=== PATIENT | female | born 1930 | race Caucasian/White ===

== ENCOUNTER 2017-04-22 09:55 | Observation (INO) | payer MEDICARE, OTHER ==
[2017-04-22 11:16] LABS: ALT (SGPT) 25 U/L (8-55); AST (SGOT) 31 U/L (5-34); Albumin 4.1 g/dL (3.4-4.8); Alkaline Phosphatase 76 U/L (40-150); Anion Gap 11 mmol/L (10-20); BUN (Urea Nitrogen) 18 mg/dL (9.8-20.1); Bilirubin, Total 0.6 mg/dL (0.2-1.2); Calc. Creatinine Clearance 0 mL/min (70-130); Calcium 9.6 mg/dL (7.8-10.44); Carbon Dioxide 30 mmol/L (23-31); Chloride 104 mmol/L (98-107); Estimated GFR-MDRD 85; Globulin 2.8 g/dL (2.4-3.5); Glucose 108 mg/dL (83-110); Potassium 3.9 mmol/L (3.5-5.1); Protein, Total 6.9 g/dL (6.0-8.3); Sodium 141 mmol/L (136-145)
[2017-04-22 11:20] LABS: CKMB 3.3 ng/mL (0-6.6); Troponin I 0.015 ng/mL (< 0.028)
--- NOTE | 2017-04-22 11:37 | RAD ---
PORTABLE AP CHEST: Date: 04/22/17 HISTORY: Chest pain and aching in left arm which started last night. High blood pressure. COMPARISON: 07/08/15. FINDINGS: Cardiac silhouette is enlarged. Pulmonary vasculature is within normal limits. Lungs are clear. There is increased density seen in the retrocardiac region lower mediastinum most likely related to a hiat al hernia as there is suggestion of air fluid level within this structure. This was not seen on the p rior exam. Remote right-sided rib fractures are identified. Vascular calcifications seen in the thoracic aorta. There is right convex rotoscoliosis of the thorac olumbar spine. Vascular calcifications are seen in the thoracic aorta. IMPRESSION: 1. Cardiomegaly. 2. Hiatal hernia. 3. Remote right-sided rib fractures. 4. Osteopenia. 5. Right convex scoliosis thoracolumbar spine with degenerative changes in the spine. 6. No acute cardiopulmonary process. POS: [facility]
[2017-04-22] MEDS ORDERED: Labetalol HCl 100 MG/20 ML VIAL ONE (11:47)
[2017-04-22] MEDS ORDERED: Sodium Chloride 0.65% Nasal 44 ML BOT EA NARE PRN (14:26)
[2017-04-22] MEDS ORDERED: Milk Of Magnesia 30 ML UDCUP PO PRN (14:26)
[2017-04-22] MEDS ORDERED: Mag-Al 1200 mg/1200 mg/30 ML UDCUP PO PRN (14:26)
[2017-04-22] MEDS ORDERED: Loperamide HCl 2 MG CAP PO PRN (14:26)
[2017-04-22] MEDS ORDERED: Nitroglycerin 0.4 MG TAB (25 Tab Bottle) SL PRN (14:26)
[2017-04-22] MEDS ORDERED: Zolpidem Tartrate 5 MG TAB PO PRN (14:26)
[2017-04-22] MEDS ORDERED: Loratadine 10 MG TAB PO PRN (14:26)
[2017-04-22] MEDS ORDERED: Ondansetron ODT 4 MG TAB PO PRN (14:26)
[2017-04-22] MEDS ORDERED: Ondansetron HCl/PF 4 MG/2 ML Vial IVP PRN (14:26)
[2017-04-22] MEDS ORDERED: Acetaminophen 325 MG TAB PO PRN (14:26)
[2017-04-22] MEDS ORDERED: Senokot 8.6 MG TAB PO PRN (14:26)
[2017-04-22] MEDS ORDERED: hydrALAZINE 20 MG/ML VIAL SLOW IVP PRN (14:26)
[2017-04-22] MEDS ORDERED: Diabetic Tussin 200 MG/10 ML UDCUP PO PRN (14:26)
[2017-04-22] MEDS ORDERED: Chloraseptic Spray 180 ml Bottle PO PRN (14:26)
[2017-04-22 14:31] VITALS: BMI 20.2
--- NOTE | 2017-04-22 14:49 | HP ---
PRIMARY CARE PHYSICIAN: Dr. Schulz. REASON FOR ADMISSION: Chest discomfort, hypertensive urgency. HISTORY OF PRESENT ILLNESS: An 87-year-old female with a history of hypertension and hypothyroidism who came to emergency room with complaint of left arm achy pain and heaviness. It started in the acevedo d and progressed towards left side of chest as well. This started last night when she went to bed, b ut when this morning she woke up, she was still feeling heaviness and she was having left-sided chest , dull achy pain and that is why she was concerned about and decided to come to the emergency room fo r evaluation. The patient is thinking that lately she was in lot of emotional stress. Her i s in skilled nursing and she was thinking about him and with emotions her blood pressure gets high. Whe n she arrived to emergency room, her blood pressure was 211/108. In the emergency room, patient was given medication and her blood pressure was improved. Still she was feeling exactly same symptoms wh en she presented to emergency room. When I saw this patient, at that time, she was complaining of le ft arm heaviness, but her discomfort in the chest was resolved. She denies any tingling, numbness in the left arm. She denies any lower extremity tingling, numbness or weakness. She denies any facial asymmetry. She denies any slurred speech. She denies any headache. She reports that a long time a go she was having high blood pressure. At that time, she was diagnosed with urinary tract infection. She had a treadmill stress test several years ago. She denies pain anywhere in her body. She sai es any fever, chills, cough, UTI symptoms. She denies any constipation, diarrhea, melena or hematoch ezia. Patient denies any flu-like symptoms. She denies any abdominal pain. She denies any constipation an d diarrhea. In the emergency room, this patient was given labetalol 5 mg and nitropatch. After that, her blood p ressure significantly improved. When I was taking history and physical, after that, patient's blood pressure is also slightly increased. ALLERGIES: CODEINE SULFATE, DEMEROL, and LATEX. CURRENT HOME MEDICATIONS: Losartan 100 mg p.o. daily and [place] Thyroid 60 mg p.o. daily. REVIEW OF SYSTEMS: The following complete review of systems was negative, unless otherwise mentioned in the HPI or below: Constitutional: Weight loss or gain, ability to conduct usual activities. Skin: Rash, itching. Eyes: Double vision, pain. ENT/Mouth: Nose bleeding, neck stiffness, pain, tenderness. Cardiovascular: Palpitations, dyspnea on exertion, orthopnea. Respiratory: Shortness of breath, wheezing, cough, hemoptysis, fever or night sweats. Gastrointestinal: Poor appetite, abdominal pain, heartburn, nausea, vomiting, constipation, or diarr hea. Genitourinary: Urgency, frequency, dysuria, nocturia. Musculoskeletal: Pain, swelling. Neurologic/Psychiatric: Anxiety, depression. Allergy/Immunologic: Skin rash, bleeding tendency. Please see my HPI for pertinent positive and negative. All other review of systems reviewed and nega tive except as mentioned in the HPI. PAST MEDICAL HISTORY: Prolapsed bladder, right bundle branch block pattern, TIA, hypertension, hypot hyroidism. PAST SURGICAL HISTORY: Bladder flap in her 20s, appendicectomy, hysterectomy, left hip surgery after fracture, thyroidectomy partial. PAST PSYCHIATRIC HISTORY: Reviewed and negative. SOCIAL HISTORY: Patient is . Her lives in skilled nursing. She drinks alcohol occasion ally twice a month. The patient denies any smoking. She denies any other illicit drug abuse. FAMILY HISTORY: No strong family history of premature coronary artery disease, stroke or cancer. EMERGENCY ROOM COURSE: Patient is given labetalol 5 mg and nitropatch. PHYSICAL EXAMINATION: VITAL SIGNS: Currently, blood pressure 211/108, pulse 90, respiratory rate 16, temperature 98.3, sat uration 98% on 2 liter oxygen, and weight 49.9 kilograms. GENERAL: The patient is currently alert, awake hypertensive, no obvious acute distress. HEAD: Normocephalic, atraumatic. EYES: Pupils round, reactive to light. Extraocular muscles intact. ENT: Oropharynx within normal limits. Moist mucous membranes, no oral lesion, no pharyngeal erythem a, no exudate. NECK: Supple, no JVD, no thyromegaly, no carotid bruit, no jugular venous distention. LUNGS: Clear to auscultation without any rhonchi or rales. CARDIAC: S1 and S2 regular. No murmur, no gallop, no rub. ABDOMEN: Soft, bowel sounds present, nontender, nondistended. No organomegaly, no mass, no suprapub ic tenderness. BACK: Examination unremarkable, no CVA tenderness. EXTREMITIES: Upper extremity passive movements of all joints are normal. Lower extremity, trace low er extremity edema noted. Good peripheral pulsation. No calf tenderness. SKIN: No skin rash. HEMATOLOGICAL SYSTEM: No lymphadenopathy. PSYCHIATRIC: Normal affect. NEUROLOGIC: Patient is currently alert and oriented x3. Cranial nerves II-XII intact. Motor 5/5 in all four limbs. The patient is subjectively feeling heaviness in left upper extremity. Her lower e xtremity within normal limits. No cerebellar sign. Reflexes bilaterally symmetrical. Plantar bilat eral flexor. SIGNIFICANT LABORATORY DATA AND IMAGING DATA: 1. EKG showing normal sinus rhythm, left axis deviation, nonspecific ST-T changes. 2. CBC is not done. 3. BMP: Sodium 141, potassium 3.9, chloride 104, carbon dioxide 30, anion gap 11, BUN 18, creatinin e 0.66, calcium 9.6. 4. LFT: AST 31, ALT 25, alkaline phosphatase 76, albumin 4.1, CK-MB 3.3, troponin I 0.015. 5. Chest x-ray based on my review, cardiomegaly, hiatal hernia, remote right-sided rib fracture, ost eopenia, right convex scoliosis of thoracolumbar spine with degenerative changes. ASSESSMENT AND PLAN/IMPRESSION: 1. Chest discomfort with left arm heaviness and achy feeling rule out cardiac etiology. At this poi nt, our differential diagnosis is acute coronary syndrome. Second differential diagnosis is transien t ischemic attack and third differential diagnosis is stress related. All problems contributed by un derlying hypertensive urgency that might have precipitated by stress and subsequent symptoms are rela mari with hypertensive urgency. At this point, despite control of blood pressure, she still has ongoi ng symptoms. We will keep in her observation status. We will do serial cardiac enzymes and rule out acute coronary syndrome. Meanwhile, we will continue with nitropatch q.8 hourly. We will use hydra lazine on p.r.n. basis for blood pressure control. Continue her losartan 100 mg p.o. daily. Check l ipid profile tomorrow morning for risk stratification. As a benefit of doubt, we will also perform C T brain to rule out any acute intracranial process. Our doubt for any kind of stroke is less likely, but cannot be entirely excluded. We will monitor on telemetry floor. 2. Hypertensive urgency with a history of hypertension. Continue losartan 100 mg p.o. daily, nitrop atch q.8 hourly and use hydralazine p.r.n. basis for blood pressure control. 3. Hypothyroidism. Continue [place] Thyroid 60 mg p.o. daily. 4. Mild protein calorie malnutrition. The patient will need nutritional supplement with Ensure. 5. Hiatal hernia. We will continue Pepcid 20 mg p.o. b.i.d. 6. Osteopenia. We will continue calcium with vitamin D 1 tablet p.o. daily. 7. Cardiomegaly, likely related with hypertension and we will check BNP level. 8. Deep venous thrombosis prophylaxis, sequential compression device boots. 9. Gastrointestinal prophylaxis, Pepcid 20 mg p.o. b.i.d. 10. Code status: The patient is FULL CODE. Patient does not have any surrogate decision maker. Disposition plan based on above-mentioned investigation results, likely within 24 hours.
[2017-04-22 15:02] LABS: Bilirubin Negative (Negative); Blood, Urine Negative (Negative); Clarity CLOUDY (Clear); Glucose, Urine (Dipstick) Negative (Negative); Leukocyte Moderate (Negative); Nitrite Positive (Negative); Protein, Urine (Dipstick) Negative (Neg-Trace); Urobilinogen 0.2 mg/dL (0.2-1.0)
[2017-04-22 15:07] LABS: Bacteria/HPF 4+ HPF (None Seen); Hyaline Casts/LPF 0-3 HYALINE CAST LPF (0-3 Hyaline); Pathc Cast-AUWi Flag 0.27 (0-2.49); RBC/HPF 0-3 HPF (0-3); Squamous Epithelial 0-3 HPF (0-3)
[2017-04-22 15:13] LABS: Troponin I 0.013 ng/mL (< 0.028)
--- NOTE | 2017-04-22 17:18 | CT ---
NONCONTRAST HEAD CT: Date: 04/22/17 HISTORY: Left upper extremity heaviness. Left upper extremity weakness. COMPARISON: None. TECHNIQUE: Noncontrast head CT is performed from skull base to skull vertex. FINDINGS: No parenchymal hemorrhage. No extra-axial hematoma. No midline shift. Basilar cisterns are patent. Ag e-appropriate atrophy. Chronic small vessel ischemic changes of the white matter noted. Cortical martinez -white matter differentiation is preserved. No evidence of hydrocephalus. Calvarium is intact. [place] te aeration of the sinuses and mastoid air cells. Calcified carotid atherosclerosis noted. IMPRESSION: 1. No acute intracranial process. 2. Age-appropriate atrophy. 3. Chronic small vessel ischemic changes of the white matter. POS: [facility]
[2017-04-22 17:32] LABS: Troponin I Less than 0.010 ng/mL (< 0.028)
[2017-04-22] MEDS: Nitroglycerin 2% Ointment 1 INCH/1 GM Packet TOP SCH (20:17)
[2017-04-22] MEDS: Famotidine 20 MG TAB PO SCH (20:32)
[2017-04-23] MEDS ORDERED: diphenhydrAMINE 50 MG/ML VIAL IVP SCH (00:15)
[2017-04-23] MEDS: Nitroglycerin 2% Ointment 1 INCH/1 GM Packet TOP SCH (00:34)
[2017-04-23] MEDS ORDERED: cefTRIAXone\\ROCEPHIN 1 GM, Syringe 0.4 ML in Sterile Water 9.6 ML SLOW IVP SCH (03:00)
[2017-04-23 05:27] LABS: Cardiac Risk 2.7 (Less than 4.5)
[2017-04-23] MEDS ORDERED: Losartan 25 MG TAB PO SCH (09:00)
[2017-04-23] MEDS ORDERED: Aspirin 325 MG TAB PO SCH (09:00)
[2017-04-23] MEDS ORDERED: Thyroid 60 MG TAB PO SCH (09:00)
[2017-04-23] MEDS: Famotidine 20 MG TAB PO SCH (10:49)
--- NOTE | 2017-04-23 11:29 | NM ---
CARDIAC SPECT: CLINICAL HISTORY: 87-year-old female with chest pain, hypertension, and TIA. TECHNIQUE: A myocardial perfusion scan was performed using the single isotope one day protocol with technetium-9 9m sestamibi. 9 mCi were injected intravenously for the rest exam followed by 33 mCi for the stress e xam. Pharmacologic stress with Adenosine was monitored and interpreted by Dr. Metz. FINDINGS: Homogeneous tracer distribution is seen in the myocardial segments on stress and rest images without fixed or reversible defects. GATED SPECT LVEF: 72%. WALL MOTION EXAM: Normal. IMPRESSION: Normal myocardial perfusion scan. POS: [facility]
--- NOTE | 2017-04-23 12:02 | DIS ---
DATE OF ADMISSION: 04/22/2017 DATE OF DISCHARGE: 04/23/2017 PRIMARY CARE PHYSICIAN: Dr. Hernandez. DISCHARGE DISPOSITION: Home. PRIMARY DISCHARGE DIAGNOSES: 1. Hypertensive urgency. 2. Chest pain, ruled out acute coronary syndrome. 3. Urinary tract infection. SECONDARY DISCHARGE DIAGNOSES: Hiatal hernia, mild protein calorie malnutrition, hypothyroidism, hyp ertension. PRIMARY PROCEDURE/OPERATION: None. RADIOLOGICAL INVESTIGATION: Chest x-ray normal. CT of the brain showed chronic ischemic white matte r changes, cerebral atrophy. Stress test negative. SIGNIFICANT LABORATORY: BMP normal. LFT normal. Cardiac enzymes negative. LDL 108. Urinalysis mota ggestive of UTI. Urine culture growing E. coli. DISCHARGE MEDICATIONS: Losartan 100 mg p.o. daily, [place] Thyroid 60 mg p.o. daily, Macrobid 100 mg p.o. b.i.d. for 7 days, clonidine 0.1 mg every 6 hourly p.r.n. for blood pressure more than 170. CONTRAINDICATIONS: None. CODE STATUS: FULL CODE. INPATIENT CONSULTANTS: None. ALLERGIES: LATEX, CODEINE, CIPROFLOXACIN, DEMEROL. DISCHARGE PLAN: Post hospital, patient will follow up with primary care physician. HOSPITAL COURSE: An 87-year-old female who was admitted by me yesterday. Please see my HPI for furt her details. This patient was having a lot of emotional stress. She was having hypertension while i n the emergency room, her blood pressure was 211/108. She was having vague chest discomfort and left upper extremity heaviness. We did CT brain and ruled out any cerebrovascular accident. This patien t was not having any urinary tract infection symptoms, but we checked urinalysis that was consistent with UTI and that is why we started on Cipro, but patient developed allergic reaction and that is why we changed medication to Rocephin. On discharge, we are prescribing Macrobid based on previous cult ure and sensitivity result. Patient is advised to follow up with primary care physician to modify an tibiotic therapy if needed. While in hospital, we did a stress test and the patient's stress test came back normal. While in [facility], her blood pressure remained stable and labile. We prescribed clonidine to use p.r.n. basis on ly. This patient might have underlying stress related blood pressure and that was contributing to he r symptoms. At this point, we have ruled out cardiac etiology. The patient was seen and examined at bedside today. All review of system reviewed with her and tyrell shen. PHYSICAL EXAMINATION: VITAL SIGNS: Currently, temperature 98.4, pulse 75, respiratory rate 16, saturation 95% on room air, blood pressure 154/67, weight 110 pounds. GENERAL: The patient is currently alert, awake, no acute distress. HEAD: Normocephalic, atraumatic. EYES: Pupils round, reactive to light. Extraocular muscle intact. ENT: Oropharynx within normal limits. Moist mucous membranes, no oral lesion, no pharyngeal erythem a, no exudate. NECK: Supple, no JVD, no thyromegaly, no carotid bruit. LUNGS: Clear to auscultation without any rhonchi or rales. CARDIAC: S1, S2 regular without any murmur. ABDOMEN: Soft and benign without any tenderness. EXTREMITIES: No edema. NEUROLOGIC: Nonfocal examination. Overall, patient is medically stable for discharge today.
--- NOTE | 2017-04-23 12:08 | PDOC.PN ---
- Subjective Encounter Start Date: 04/23/17 Encounter Start Time: 10:15 Patient seen and examined. No new complaints. No overnight events - Objective Resuscitation Status: Resuscitation Status FULL:Full Resuscitation MAR Reviewed: Yes Vital Signs & Weight: Vital Signs (12 hours) Temp Pulse Resp BP BP Pulse Ox 04/23/17 12:04 78 04/23/17 07:45 98.4 F 78 16 174/74 H 92 L 04/23/17 03:10 98.4 F 70 16 163/74 H 97 Weight Weight 110 lb 12.8 oz I&O: 04/22/17 04/23/17 04/24/17 06:59 06:59 06:59 Intake Total 361 Output Total 650 Balance -289 Result Diagrams: 04/22/17 10:53 EKG Reviewed by me: Yes Phys Exam - Physical Examination Constitutional: NAD HEENT: PERRLA, moist MMs, sclera anicteric Neck: no JVD, supple Respiratory: no wheezing, no rales, no rhonchi Cardiovascular: RRR, no significant murmur, no rub Gastrointestinal: soft, non-tender, no distention, positive bowel sounds Musculoskeletal: no edema, pulses present Neurological: non-focal, normal sensation, moves all 4 limbs Psychiatric: normal affect, A&O x 3 Skin: no rash, normal turgor Dx/Plan (1) Chest pain Code(s): R07.9 - CHEST PAIN, UNSPECIFIED Status: Acute (2) Urinary tract infection Status: Acute (3) Hypertension Code(s): I10 - ESSENTIAL (PRIMARY) HYPERTENSION Status: Chronic (4) Hypothyroidism Code(s): E03.9 - HYPOTHYROIDISM, UNSPECIFIED Status: Chronic - Plan cont current plan of care, continue antibiotics * medication reviewed as below * symptomatic treatment * see discharge summery. Review of Systems - Review of Systems ENT: negative: Ear Pain, Ear Discharge, Nose Pain, Nose Discharge, Nose Congestion, Mouth Pain, Mouth Swelling, Throat Pain, Throat Swelling, Other Respiratory: negative: Cough, Dry, Shortness of Breath, Hemoptysis, SOB with Excertion, Pleuritic Pain, Sputum, Wheezing Cardiovascular: negative: chest pain, palpitations, orthopnea, paroxysmal nocturnal dyspnea, edema, light headedness, other Gastrointestinal: negative: Nausea, Vomiting, Abdominal Pain, Diarrhea, Constipation, Melena, Hematochezia, Other Genitourinary: negative: Dysuria, Frequency, Incontinence, Hematuria, Retention , Other Musculoskeletal: negative: Neck Pain, Shoulder Pain, Arm Pain, Back Pain, Hand Pain, Leg Pain, Foot Pain, Other Skin: negative: Rash, Lesions, [place], Bruising, Other - Medications/Allergies Allergies/Adverse Reactions: Allergies Allergy/AdvReac Type Severity Reaction Status Date / Time latex Allergy Severe Anaphylaxis Verified 07/08/15 08:54 codeine Allergy Mild Verified 07/08/15 08:53 ciprofloxacin [From Cipro] Allergy Verified 04/22/17 20:52 meperidine [From Demerol] Allergy Verified 04/22/17 16:06 Medications: Current Medications Acetaminophen (Tylenol) 650 mg PO Q4H PRN PRN Reason: Headache/Fever or Pain Last Admin: 04/22/17 21:33 Dose: 650 mg Al Hydroxide/Mg Hydroxide (Maalox) 30 ml PO Q6H PRN PRN Reason: Heartburn or Indigestion Aspirin (Aspirin) 325 mg PO DAILY [facility] Last Admin: 04/23/17 10:47 Dose: 325 mg Famotidine (Pepcid) 20 mg PO BID [facility] Last Admin: 04/23/17 10:49 Dose: Not Given Guaifenesin (Robitussin Sf) 200 mg PO Q4H PRN PRN Reason: Cough Hydralazine HCl (Apresoline) 10 mg SLOW IVP Q4H PRN PRN Reason: Systolic BP > 180 Last Admin: 04/23/17 12:04 Dose: 10 mg Ceftriaxone Sodium 1 gm/ (Syringe 0.4 ml/ Sterile Water) 10 mls @ 120 mls/hr SLOW IVP 0300 [facility] Last Admin: 04/23/17 03:39 Dose: 10 mls Loperamide HCl (Imodium) 2 mg PO PRN PRN PRN Reason: Diarrhea/Loose Stools Loratadine (Claritin) 10 mg PO DAILYPRN PRN PRN Reason: Sinus Symptoms Losartan Potassium (Cozaar) 100 mg PO DAILY [facility] Last Admin: 04/23/17 10:47 Dose: 100 mg Magnesium Hydroxide (Milk Of Magnesium) 30 ml PO DAILYPRN PRN PRN Reason: Constipation Nitroglycerin (Nitrostat) 0.4 mg SL Q5MIN PRN PRN Reason: Chest Pain Nitroglycerin (Nitro-Bid 2% Ointment) 0.5 inch TOP Q8HR [facility] Last Admin: 04/23/17 00:34 Dose: Not Given Ondansetron HCl (Zofran Odt) 4 mg PO Q6H PRN PRN Reason: Nausea/Vomiting Ondansetron HCl (Zofran) 4 mg IVP Q6H PRN PRN Reason: Nausea/Vomiting Phenol (Chloraseptic [place] 180 Ml Bot) 0 ml PO PRN PRN PRN Reason: Sore Throat Senna (Senokot) 2 tab PO HSPRN PRN PRN Reason: Constipation Sodium Chloride ([place] Nasal [place] 0.65%) 0 ml EA NARE QIDPRN PRN PRN Reason: Nasal Congestion Thyroid ([place] Thyroid) 60 mg PO DAILY [facility] Last Admin: 04/23/17 10:47 Dose: 60 mg Zolpidem Tartrate (Ambien) 5 mg PO HSPRN PRN PRN Reason: Insomnia
[2017-04-23 12:16] VITALS: TEMP 99
[2017-04-23] MEDS ORDERED: cloNIDine 0.1 MG TAB PO PRN (12:36)
[2017-04-23 13:47] VITALS: BP 139/108
[2017-04-23] MEDS ORDERED: ADENOSINE 60 MG/20 ML VIAL ONE (16:36)
--- NOTE | 2017-04-27 17:34 | EKG ---
Test Reason : Blood Pressure : / mmHG Vent. Rate : 090 BPM Atrial Rate : 090 BPM P-R Int : 178 ms QRS Dur : 114 ms QT Int : 386 ms P-R-T Axes : 076 -30 084 degrees QTc Int : 472 ms Normal sinus rhythm Left axis deviation Septal infarct , age undetermined Abnormal ECG Confirmed by GEORGI GUTIERREZ, TORIE ([id number]), publishing editor URIEL EVANS ([id number]) on 04/27/2017 5:33:42 PM Referred By: Confirmed By:TORIE LAUREANO MD
== END 2017-04-23 15:34 | disposition home or self-care (01) ==
LOC: ERS 09:55 → 2SW 12:51
PROVIDERS: ADMIT Internal Medicine; ATTEND Internal Medicine
DX: I16.0 Hypertensive urgency (principal); R07.89 Other chest pain; N39.0 Urinary tract infection, site not specified; K44.9 Diaphragmatic hernia without obstruction or gangrene; E03.9 Hypothyroidism, unspecified; M85.80 Other specified disorders of bone density and structure, unspecified site; I11.9 Hypertensive heart disease without heart failure; B96.20 Unspecified Escherichia coli [E. coli] as the cause of diseases classified elsewhere; B95.2 Enterococcus as the cause of diseases classified elsewhere; E44.1 Mild protein-calorie malnutrition; Z68.20 Body mass index [BMI] 20.0-20.9, adult; Z86.73 Personal history of transient ischemic attack (TIA), and cerebral infarction without residual deficits; Z88.5 Allergy status to narcotic agent; Z88.1 Allergy status to other antibiotic agents; Z91.040 Latex allergy status; Z79.899 Other long term (current) drug therapy
CPT/HCPCS: 70450; 71045; 78452; 80053; 80061; 81001; 82553; 84484 ×2; 87077; 87086; 87186; 93005; 93017; 96374; 96375; 99285; A9500; G0378; 36415; A4216; J0153; J0360; J0696; J0744

== ENCOUNTER 2017-06-03 21:53 | Inpatient (IN) | payer MEDICARE, OTHER ==
[~2017-06-03 21:53] MED LIST: ISOVUE-370 76%-LOCM 1 ML ONE
[2017-06-03] MEDS ORDERED: Promethazine HCl 25 MG/ML VIAL ONE (22:35)
[2017-06-03 22:38] LABS: #Basophils 0.1 thou/uL (0.0-0.2); #Eosinphils 0.1 thou/uL (0.0-0.7); #Lymphocytes 1.5 thou/uL (1.20-3.40); #Monocytes 0.5 thou/uL (0.11-0.59); #Neutrophils 4.8 thou/uL (1.40-6.50); %Basophils 1.2 % (0.0-1.0); %Eosinophils 1.9 % (0.0-10.0); %Lymphocytes 21.6 % (21.0-51.0); %Monocytes 6.8 % (0.0-10.0); %Neutrophils 68.6 % (42.0-75.0); Hemoglobin 13.3 g/dL (12.0-16.0); Mean Corpuscular HGB CONC 33.2 g/dL (32.0-36.0); Mean Corpuscular Hemoglobin 32.3 pg (27.0-31.0); Mean Corpuscular Volume 97.1 fl (81.0-99.0); Platelet Count 242 thou/uL (130-400); RBC Distribution Width 12.1 % (11.5-14.5); Red Blood Cell (RBC) Count 4.12 mill/uL (4.20-5.40)
[2017-06-03 22:45] LABS: INR-International Normal Ratio 1.1; Prothrombin Time 14.1 SEC (12.0-14.7)
[2017-06-03 23:02] LABS: Troponin I Less than 0.010 ng/mL (< 0.028)
[2017-06-03 23:04] LABS: ALT (SGPT) 23 U/L (8-55); AST (SGOT) 26 U/L (5-34); Albumin 3.9 g/dL (3.4-4.8); Alkaline Phosphatase 79 U/L (40-150); Anion Gap 10 mmol/L (10-20); BUN (Urea Nitrogen) 20 mg/dL (9.8-20.1); Bilirubin, Total 0.6 mg/dL (0.2-1.2); CK (CPK) 71 U/L (29-168); Calc. Creatinine Clearance 0 mL/min (70-130); Calcium 8.6 mg/dL (7.8-10.44); Carbon Dioxide 29 mmol/L (23-31); Chloride 93 mmol/L (98-107); Estimated GFR-MDRD Greater than 90; Globulin 2.5 g/dL (2.4-3.5); Glucose 119 mg/dL (83-110); Potassium 3.3 mmol/L (3.5-5.1); Protein, Total 6.1 g/dL (6.0-8.3); Sodium 129 mmol/L (136-145)
--- NOTE | 2017-06-03 23:07 | CT ---
BRAIN CT WITHOUT IV CONTRAST: HISTORY: An 87-year-old female with a history of weakness, dizziness, and vomiting. COMPARISON: 04/22/2017 FINDINGS: No focal mass or midline shift. No intraaxial or extraaxial hemorrhage. Bilateral stable atrophy an d chronic white matter ischemic change. IMPRESSION: Stable atrophy and chronic white matter ischemic changes from prior exam of 04/22/2017. No mass, ble ed, or other significant acute process. POS: [facility]
--- NOTE | 2017-06-03 23:55 | CT ---
CTA HEAD AND NECK UTILIZING IV CONTRAST AND 3D REFORMATTED IMAGING: COMPARISON: Noncontrast CT brain performed earlier, at 10:51 p.m. FINDINGS: No hemodynamically significant stenosis, occlusion, or aneurysmal formation seen involving the arteri es of the head and neck region. The left vertebral artery is slightly diminutive and terminates at t he left PICA. There are mild vascular calcifications involving the intracranial arteries, as well as the right carotid bulb. The heart and great vessels appear within normal limits. The lung apices a re clear. The visualized soft tissues in the neck appear within normal limits. No abnormal enhancem ent is seen involving the intracranial structures. No midline shift is evident. There is scattered degenerative and osteoarthritic change. IMPRESSION: No hemodynamically significant stenosis, occlusion, or aneurysmal formation demonstrated. Findings were called to Dr. Clark at 11:45 p.m. on 06/03/2017. POS: [facility]
[2017-06-04 01:54] LABS: Bilirubin Negative (Negative); Blood, Urine Negative (Negative); Clarity CLOUDY (Clear); Glucose, Urine (Dipstick) Negative (Negative); Leukocyte Negative (Negative); Nitrite Negative (Negative); Protein, Urine (Dipstick) Negative (Neg-Trace); Specific Gravity, Urine 1.014 (1.002-1.036); Urobilinogen 0.2 mg/dL (0.2-1.0); pH, Urine 7.5 (5.0-9.0)
[2017-06-04] MEDS ORDERED: Promethazine HCl 25 MG/ML VIAL ONE (01:59)
[2017-06-04 02:50] LABS: Troponin I Less than 0.010 ng/mL (< 0.028)
[2017-06-04] MEDS ORDERED: Ondansetron HCl/PF 4 MG/2 ML Vial IVP PRN ×2 (03:34→03:36)
[2017-06-04] MEDS ORDERED: Acetaminophen 325 MG TAB PO PRN ×2 (03:34→03:36)
[2017-06-04] MEDS ORDERED: Ondansetron ODT 4 MG TAB SL PRN (03:34)
[2017-06-04] MEDS ORDERED: cloNIDine 0.1 MG TAB PO PRN (03:36)
[2017-06-04] MEDS ORDERED: Enoxaparin Sodium 30 MG/0.3 ML SYRINGE SC SCH (03:36)
[2017-06-04] MEDS: Ondansetron ODT 4 MG TAB PO PRN (04:09)
[2017-06-04] MEDS: Sodium Chloride 0.9% 1,000 ML IV SCH ×2 (04:09→19:29)
[2017-06-04] MEDS: Thyroid 60 MG TAB PO SCH (06:37)
--- NOTE | 2017-06-04 07:05 | HP ---
PRIMARY CARE PHYSICIAN: Dr. Prieto Hernandez DATE OF ADMISSION: 06/04/2017 TIME OF SERVICE: 0320. CHIEF COMPLAINT: Nausea, vomiting. HISTORY OF PRESENT ILLNESS: Ms. Johnson is an 87-year-old white female well known to us from a rec ent hospitalization a few weeks ago who presents to the emergency department with intractable nausea and vomiting. The patient apparently was in her normal state of health at around 2100 today, she felt weak in all f our of her extremities, felt it was hard to get up and felt somewhat dizzy or lightheaded. She denie d any pain, no numbness, but overall just felt off balance. She had abrupt onset of nausea and vomit ing which she has been basically vomiting since. No chest pain or shortness of breath. No fevers or chills. She ate some eggs and toast this evening that she cooked herself and said everything seemed to be int act. She has had no diarrhea, no dysuria, no hematuria. In the ER, workup showed labs to be completely normal. Vital signs were normal. The patient had int ractable nausea and vomiting, so we were subsequently called for admission. PAST MEDICAL HISTORY: 1. Prolapsed bladder. 2. Right bundle branch block. 3. Transient ischemic attack. 4. Hypertension. PAST SURGICAL HISTORY: 1. Bladder reconstruction in her 20s. 2. Appendectomy. 3. Hysterectomy. 4. Left hip replacement. 5. Partial thyroidectomy. HOME MEDICATIONS: 1. Losartan 100 mg daily. 2. [place] Thyroid 60 mg daily. 3. Clonidine 0.1 mg q.6h. p.r.n. elevated blood pressure. ALLERGIES: LATEX, CODEINE, CIPRO and MEPERIDINE. FAMILY HISTORY: Negative for clotting or bleeding disorder. No immune dysfunction. SOCIAL HISTORY: She lives at [facility]. Negative for habits x3. REVIEW OF SYSTEMS: Ten point review of systems performed and is negative for all systems except as p er HPI. Her son is with her and accompanies her. The patient does not want any tubes, does not want to be kept alive and through her son is a DNR/DNI. PHYSICAL EXAMINATION: VITAL SIGNS: Temperature 97.8, pulse 92, blood pressure 165/110, respiratory rate 14, 97% on room ai r. GENERAL: She is awake. She is alert. She is oriented x3. She is a thin, elderly white female, yonathan ears age appropriate. She is in obvious discomfort and retches and throws up in the vomit bag every few minutes. HEENT: Normocephalic, atraumatic. Pupils are equal, round, react to light bilaterally, mucous membr anes are moist. She has no visibly lesion or thrush. NECK: Supple, without lymphadenopathy, JVD, or thyromegaly. She has normal carotid upstrokes. I do not appreciate bruits. LUNGS: Clear to auscultation bilaterally. She has adequate air movement and symmetrical chest excur rasheeda. No wheezing, no rales, no rhonchi. CARDIOVASCULAR: She has normal S1, S2. No S3 or S4. She is slightly tachycardic. No audible murmu rs. ABDOMEN: Soft, is nontender. It is slightly distended. She has scant bowel sounds. There is no re bound, rigidity or guarding. EXTREMITIES: Show no cyanosis, no clubbing with trace pedal edema. SKIN: Warm, moist and well perfused. She has no other rashes or lesions. MUSCULOSKELETAL: Normal to inspection. Large joints appear intact. She has no inflammation, no pal pable effusions. NEUROLOGIC: Cranial nerves II-XII grossly intact, she has no focal deficits, 4/5 strength in all 4 e xtremities. LABORATORY DATA: Sodium 129, potassium 3.3, chloride 93, bicarbonate 29, BUN 20, creatinine 0.59, gl ucose 119 and calcium 9.1. Liver functions are completely within normal limits. CBC showed a white count of 7.0, hemoglobin 13.3, hematocrit of 40.0, platelet count is 242,000. White count is normal, differential. Urinalysis clean. Lactic acid 0.7, CK-MB 3.0 and troponin I is less than 0.010. INR is 1.1. A CT scan of the brain and CT angiogram negative for acute disease, showed some chronic changes. ASSESSMENT AND PLAN: 1. Intractable nausea, vomiting. I do not think she is having any kind of neurologic event. I will get a KUB as her belly is distended and quiet. We will follow up on the results of that. In the mt antime, we will keep her only on clear liquids. We will advance her diet very cautiously. She may n eed GI evaluation. 2. Hypertension, on losartan and p.r.n. clonidine. May hold that for right now. 3. Hypothyroidism on [place] thyroid. 4. History of right bundle branch block, stable. 5. Transient ischemic attacks, none current. I will continue home medications.
--- NOTE | 2017-06-04 08:11 | RAD ---
CHEST 1 VIEW: Date: 06/04/17 HISTORY: Emergency exam. COMPARISON: Chest radiograph dated 04/22/17. FINDINGS: Heart size continues to be mildly enlarged. Exam is limited due to leftward patient rotation. Lungs w ithout focal air space consolidation, pneumothorax, or effusion. Moderate dextroscoliosis of thoracolumbar junction. No acute osseous abnormality is appreciated. Moderate size sliding hiatal hernia. IMPRESSION: Similar examination of chest given limitation of rotation. No acute intrathoracic abnormality. POS: [facility]
[2017-06-04] MEDS ORDERED: Promethazine HCl 25 MG/ML VIAL SLOW IVP PRN (08:24)
[2017-06-04] MEDS ORDERED: Prevnar 13-Val Conj/PF 0.5 ML SYRINGE IM ONE (09:00)
[2017-06-04] MEDS ORDERED: Famotidine/PF 20 mg/2ml Vial SLOW IVP SCH (09:00)
[2017-06-04] MEDS: Losartan 25 MG TAB PO SCH (09:13)
--- NOTE | 2017-06-04 09:51 | RAD ---
KUB: History: Abdominal pain and distention. FINDINGS: The bowel gas pattern appears nonobstructed. There is a severe scoliotic deformity to the spine, conv ex to the right. Bones are demineralized. Residual contrast from a previous CT is seen within the edu dder. Left hip prosthesis is noted. IMPRESSION: 1. No acute findings. 2. Severe scoliosis. POS: [facility]
[2017-06-04] MEDS: Famotidine 40 MG/4 ML VIAL SLOW IVP SCH (10:10)
[2017-06-04] MEDS ORDERED: Potassium Chloride 20 MEQ TAB PO SCH ×2 (10:30)
[2017-06-04] MEDS: Famotidine 20 MG TAB PO SCH (12:31)
[2017-06-04] MEDS: Potassium Chloride 20 MEQ TAB PO SCH (17:19)
[2017-06-05 05:11] LABS: Anion Gap 8 mmol/L (10-20); BUN (Urea Nitrogen) 15 mg/dL (9.8-20.1); Calc. Creatinine Clearance 73 mL/min (70-130); Calcium 9.1 mg/dL (7.8-10.44); Carbon Dioxide 26 mmol/L (23-31); Chloride 111 mmol/L (98-107); Estimated GFR-MDRD Greater than 90; Glucose 89 mg/dL (83-110); Magnesium 2.1 mg/dL (1.6-2.6); Sodium 141 mmol/L (136-145)
[2017-06-05] MEDS: Thyroid 60 MG TAB PO SCH (05:18)
[2017-06-05 05:24] LABS: Band 2 % (5-11); Eosinophils 2 % (0-10); Hemoglobin 12.5 g/dL (12.0-16.0); Lymphocytes 12 % (21-51); MDiff Complete? YES; Mean Corpuscular HGB CONC 34.2 g/dL (32.0-36.0); Mean Corpuscular Hemoglobin 32.8 pg (27.0-31.0); Mean Platelet Volume 7.1 fL (7.4-10.4); Monocytes 10 % (0-10); Neutrophil 73 % (42-75); Platelet Count 211 thou/uL (130-400); RBC Distribution Width 12.5 % (11.5-14.5); Red Blood Cell (RBC) Count 3.82 mill/uL (4.20-5.40); White Blood Cell (WBC) Count 7.4 thou/uL (4.8-10.8)
[2017-06-05] MEDS: Losartan 25 MG TAB PO SCH (08:45)
[2017-06-05] MEDS: Famotidine 20 MG TAB PO SCH (08:46)
[2017-06-05] MEDS: Famotidine 40 MG/4 ML VIAL SLOW IVP SCH (08:46)
[2017-06-05] MEDS: Potassium Chloride 20 MEQ TAB PO SCH (08:51)
[2017-06-05] MEDS: hydrALAZINE 20 MG/ML VIAL SLOW IVP PRN (11:22)
[2017-06-05] MEDS: Ondansetron ODT 4 MG TAB PO PRN ×2 (12:34→18:42)
--- NOTE | 2017-06-05 19:17 | PDOC.PN ---
- Subjective Encounter Start Date: 06/05/17 Encounter Start Time: 08:10 Subjective: f/u for severe nausea and vomiting with profound weakness. Received IVF -: and antiemetics and overall feeling better. - Objective Resuscitation Status: Resuscitation Status FULL:Full Resuscitation Vital Signs & Weight: Vital Signs (12 hours) Temp Pulse Pulse Pulse Resp BP BP 06/05/17 15:07 98.6 F 87 16 06/05/17 14:30 85 06/05/17 13:43 183/76 H 06/05/17 13:20 94 97 176/80 H 06/05/17 11:22 80 178/81 H 06/05/17 10:56 98.3 F 81 16 06/05/17 10:02 06/05/17 08:20 97.6 F 76 16 06/05/17 07:17 97.6 F 76 16 BP BP Pulse Ox 06/05/17 15:07 131/60 94 L 06/05/17 14:30 141/63 H 06/05/17 13:43 06/05/17 13:20 183/82 H 06/05/17 11:22 06/05/17 10:56 178/81 H 94 L 06/05/17 10:02 170/74 H 06/05/17 08:20 06/05/17 07:17 171/72 H 93 L Weight Weight 132 lb 3.2 oz I&O: 06/04/17 06/05/17 06/06/17 06:59 06:59 06:59 Intake Total 380 2181 Output Total 2631 1420 Balance 380 -450 -1420 Result Diagrams: 06/05/17 04:37 06/05/17 04:37 Additional Labs: Microbiology 06/04/17 01:53 Venous blood - Left Arm Blood Culture - Preliminary Specimen has been received and culture in progress. No Growth to date. 06/04/17 01:48 Venous blood - Right Hand Blood Culture - Preliminary Specimen has been received and culture in progress. No Growth to date. 06/03/17 23:48 Urine voided Urine Culture - Preliminary Escherichia coli Laboratory Tests 06/03/17 06/03/17 06/05/17 01:13 22:28 04:37 Sodium 129 L Potassium 3.3 L Magnesium 2.1 B-Natriuretic Peptide 99.8 Radiology Reviewed by me: Yes (KUB - negative findings) Phys Exam - Physical Examination Constitutional: NAD HEENT: PERRLA, moist MMs, sclera anicteric, oral pharynx no lesions Neck: no nodes, no JVD, supple Respiratory: no wheezing, no rales, no rhonchi, clear to auscultation bilateral Cardiovascular: RRR, no significant murmur, no rub, gallop Gastrointestinal: soft, non-tender, no distention, positive bowel sounds Musculoskeletal: no edema, pulses present Neurological: normal sensation, moves all 4 limbs Psychiatric: normal affect, A&O x 3 Skin: no rash, normal turgor, cap refill <2 seconds Dx/Plan (1) Nausea & vomiting Code(s): R11.2 - NAUSEA WITH VOMITING, UNSPECIFIED Status: Acute Comment: Improved with IVF's, antiemetics, likely due to UTI (2) E. coli UTI Code(s): N39.0 - URINARY TRACT INFECTION, SITE NOT SPECIFIED; B96.20 - UNSP ESCHERICHIA COLI THE CAUSE OF DISEASES CLASSD ELSWHR Status: Acute Comment: Continue Rocephin 2gm IV q24h, susceptibilities to follow (3) Hyponatremia Code(s): E87.1 - HYPO-OSMOLALITY AND HYPONATREMIA Status: Acute Comment: Suspect due to poor po intake, improving (4) Hypokalemia Code(s): E87.6 - HYPOKALEMIA Status: Acute Comment: Resolved after supplementation of KCL (5) Generalized weakness Code(s): R53.1 - WEAKNESS Status: Chronic Comment: High fall risk due to weakness, PT evaluation, Rehab vs SNF options - Plan continue antibiotics, PT/OT, oncology social work, out of bed/ambulate, DVT proph w/ SCDs Stable overall -: Continue Rocephin 2gm IV q24h -: Saline lock IVF's -: CM for SNF/Rehab options -: Convert to inpatient status * PT for functional assessment
[2017-06-05] MEDS: cefTRIAXone\\ROCEPHIN 2 GM in Sodium Chloride 0.9% 100 ML IVPB SCH (21:04)
[2017-06-05] MEDS: Sodium Chloride 0.9% 1,000 ML IV SCH (21:15)
[2017-06-06] MEDS: Thyroid 60 MG TAB PO SCH (05:52)
[2017-06-06] MEDS: Losartan 25 MG TAB PO SCH (08:59)
[2017-06-06] MEDS: Famotidine 20 MG TAB PO SCH (08:59)
[2017-06-06] MEDS: Famotidine 40 MG/4 ML VIAL SLOW IVP SCH (09:01)
--- NOTE | 2017-06-06 11:13 | PDOC.PN ---
- Subjective Encounter Start Date: 06/06/17 Encounter Start Time: 11:00 Subjective: f/u for UTI with e. coli and nausea/vomiting and dehydration. Overall -: feeling better. Tolerating po intake. Less weakness today. - Objective MAR Reviewed: Yes Vital Signs & Weight: Vital Signs (12 hours) Temp Pulse Resp BP Pulse Ox 06/06/17 08:00 98.5 F 72 16 168/75 H 96 06/06/17 04:00 97.5 F L 72 18 168/90 H 96 06/06/17 01:04 98.2 F 72 14 06/05/17 23:48 98.2 F 72 14 149/69 H 94 L I&O: 06/05/17 06/06/17 06/07/17 06:59 06:59 06:59 Intake Total 500 240 Output Total 200 Balance 300 240 Result Diagrams: 06/05/17 04:37 06/05/17 04:37 Additional Labs: Microbiology 06/04/17 01:53 Venous blood - Left Arm Blood Culture - Preliminary Specimen has been received and culture in progress. No Growth to date. 06/04/17 01:48 Venous blood - Right Hand Blood Culture - Preliminary Specimen has been received and culture in progress. No Growth to date. 06/03/17 23:48 Urine voided Urine Culture - Preliminary Escherichia coli Laboratory Tests 06/03/17 06/03/17 06/05/17 01:13 22:28 04:37 Sodium 129 L Potassium 3.3 L Magnesium 2.1 B-Natriuretic Peptide 99.8 Phys Exam - Physical Examination Constitutional: NAD alert, talkative HEENT: PERRLA, moist MMs, sclera anicteric, oral pharynx no lesions Neck: no nodes, no JVD, supple Respiratory: no wheezing, no rales, no rhonchi, clear to auscultation bilateral Cardiovascular: RRR, no significant murmur, no rub, gallop Gastrointestinal: soft, non-tender, no distention, positive bowel sounds Musculoskeletal: no edema, pulses present Neurological: non-focal, normal sensation, moves all 4 limbs Psychiatric: normal affect, A&O x 3 Skin: no rash, normal turgor, cap refill <2 seconds Dx/Plan (1) Nausea & vomiting Code(s): R11.2 - NAUSEA WITH VOMITING, UNSPECIFIED Status: Acute Comment: Improved with IVF's, antiemetics, likely due to UTI (2) E. coli UTI Code(s): N39.0 - URINARY TRACT INFECTION, SITE NOT SPECIFIED; B96.20 - UNSP ESCHERICHIA COLI THE CAUSE OF DISEASES CLASSD ELSWHR Status: Acute Comment: Continue Rocephin 2gm IV q24h, susceptible to Cephalosporins (3) Hyponatremia Code(s): E87.1 - HYPO-OSMOLALITY AND HYPONATREMIA Status: Acute Comment: Suspect due to poor po intake, improving (4) Hypertension Code(s): I10 - ESSENTIAL (PRIMARY) HYPERTENSION Status: Chronic Qualifiers: Hypertension type: essential hypertension Qualified Code(s): I10 - Essential (primary) hypertension Comment: Labile, start Norvasc 5mg daily, continue Losartan 100mg daily, serial monitoring (5) Hypokalemia Code(s): E87.6 - HYPOKALEMIA Status: Acute Comment: Resolved after supplementation of KCL (6) Generalized weakness Code(s): R53.1 - WEAKNESS Status: Chronic Comment: High fall risk due to weakness, PT evaluation, Rehab vs SNF options pending - Plan continue antibiotics, PT/OT, medical social consultant, out of bed/ambulate, DVT proph w/ SCDs Stable currently -: Continue Rocephin another 24h then convert to po option -: Saline lock IVF's -: Start Norvasc 5mg daily -: PT for mobilization * Awaiting SNF/Rehab approval * Likely d/c in 24h
[2017-06-06] MEDS ORDERED: Amlodipine 5 MG TAB PO SCH ×2 (11:30→12:00)
[2017-06-06] MEDS: cefTRIAXone\\ROCEPHIN 2 GM in Sodium Chloride 0.9% 100 ML IVPB SCH (21:43)
[2017-06-07 05:10] VITALS: BMI 25.3
[2017-06-07] MEDS: Thyroid 60 MG TAB PO SCH (05:57)
[2017-06-07] MEDS: Famotidine 20 MG TAB PO SCH (09:07)
[2017-06-07] MEDS: Losartan 25 MG TAB PO SCH (09:07)
[2017-06-07] MEDS: Amlodipine 5 MG TAB PO SCH (09:07)
--- NOTE | 2017-06-07 14:47 | PDOC.PN ---
- Subjective Encounter Start Date: 06/07/17 Encounter Start Time: 14:35 Subjective: f/u for UTI with e.coli on Rocephin. Feels better overall but remains -: weak and deconditioned. Tolerating po intake. Plan for transfer to -: SNF in am. - Objective MAR Reviewed: Yes Vital Signs & Weight: Vital Signs (12 hours) Temp Pulse Resp BP BP Pulse Ox 06/07/17 11:47 98.2 F 87 16 170/80 H 91 L 06/07/17 09:07 63 135/83 06/07/17 08:00 98.7 F 63 16 136/64 96 06/07/17 04:00 98.6 F 85 16 149/84 H 95 Weight Weight 129 lb 9.6 oz I&O: 06/06/17 06/07/17 06/08/17 06:59 06:59 06:59 Intake Total 500 1890 Output Total 200 250 Balance 300 1640 Result Diagrams: 06/05/17 04:37 06/05/17 04:37 Additional Labs: Microbiology 06/04/17 01:53 Venous blood - Left Arm Blood Culture - Preliminary Specimen has been received and culture in progress. No Growth to date. 06/04/17 01:48 Venous blood - Right Hand Blood Culture - Preliminary Specimen has been received and culture in progress. No Growth to date. 06/03/17 23:48 Urine voided Urine Culture - Preliminary Escherichia coli Laboratory Tests 06/03/17 06/03/17 06/05/17 01:13 22:28 04:37 Sodium 129 L Potassium 3.3 L Magnesium 2.1 B-Natriuretic Peptide 99.8 Phys Exam - Physical Examination Constitutional: NAD HEENT: PERRLA, moist MMs, sclera anicteric, oral pharynx no lesions Neck: no nodes, no JVD, supple Respiratory: no wheezing, no rales, no rhonchi, clear to auscultation bilateral Cardiovascular: RRR, no significant murmur, no rub, gallop Gastrointestinal: soft, non-tender, no distention, positive bowel sounds Musculoskeletal: no edema, pulses present Neurological: non-focal, normal sensation, moves all 4 limbs Psychiatric: normal affect, A&O x 3 Skin: no rash, normal turgor, cap refill <2 seconds Dx/Plan (1) Nausea & vomiting Code(s): R11.2 - NAUSEA WITH VOMITING, UNSPECIFIED Status: Acute Comment: Improved with IVF's, antiemetics, likely due to UTI, resolved (2) E. coli UTI Code(s): N39.0 - URINARY TRACT INFECTION, SITE NOT SPECIFIED; B96.20 - UNSP ESCHERICHIA COLI THE CAUSE OF DISEASES CLASSD ELSWHR Status: Acute Comment: Start Macrobid 100mg BID, d/c Rocephin (3) Hyponatremia Code(s): E87.1 - HYPO-OSMOLALITY AND HYPONATREMIA Status: Acute Comment: Suspect due to poor po intake, improving (4) Hypertension Code(s): I10 - ESSENTIAL (PRIMARY) HYPERTENSION Status: Chronic Qualifiers: Hypertension type: essential hypertension Qualified Code(s): I10 - Essential (primary) hypertension Comment: Labile, start Norvasc 5mg daily, continue Losartan 100mg daily, serial monitoring (5) Hypokalemia Code(s): E87.6 - HYPOKALEMIA Status: Acute Comment: Resolved after supplementation of KCL (6) Generalized weakness Code(s): R53.1 - WEAKNESS Status: Chronic Comment: High fall risk due to weakness, PT evaluation, plan to transfer to SNF in am - Plan continue antibiotics, PT/OT, social sciences instructor, out of bed/ambulate, DVT proph w/ SCDs Stable overall -: Start Macrobid 100mg BID -: D/C Rocephin -: PT for mobilization -: Plan for d/c to [facility] 06/08/17 * .
[2017-06-07] MEDS: cefTRIAXone\\ROCEPHIN 2 GM in Sodium Chloride 0.9% 100 ML IVPB SCH (20:09)
[2017-06-07] MEDS: Nitrofurantoin Monohyd/M-Cryst 100 MG CAP PO SCH (20:09)
[2017-06-08] MEDS: Ondansetron ODT 4 MG TAB PO PRN ×2 (02:51→09:17)
[2017-06-08] MEDS: hydrALAZINE 20 MG/ML VIAL SLOW IVP PRN (06:01)
[2017-06-08] MEDS: Thyroid 60 MG TAB PO SCH (06:03)
[2017-06-08] MEDS: Famotidine 20 MG TAB PO SCH (08:36)
[2017-06-08] MEDS: Losartan 25 MG TAB PO SCH (08:36)
[2017-06-08] MEDS: Amlodipine 5 MG TAB PO SCH (08:36)
[2017-06-08] MEDS: Nitrofurantoin Monohyd/M-Cryst 100 MG CAP PO SCH ×2 (09:17→20:29)
--- NOTE | 2017-06-08 17:36 | PDOC.PN ---
- Subjective Encounter Start Date: 06/08/17 Encounter Start Time: 13:00 Subjective: f/u for UTI with e. coli on previous Rocephin now Macrobid. Had some nausea -: CASEY and poor overall night last pm. No current fever. Feels weak. - Objective MAR Reviewed: Yes Vital Signs & Weight: Vital Signs (12 hours) Temp Pulse Resp BP Pulse Ox 06/08/17 11:52 98.7 F 103 H 16 127/71 92 L 06/08/17 08:36 99 06/08/17 08:00 98.5 F 99 16 109/64 96 06/08/17 06:01 101 H Weight Weight 130 lb 11.2 oz I&O: 06/07/17 06/08/17 06/09/17 06:59 06:59 06:59 Intake Total 1890 400 Output Total 250 Balance 1640 400 Result Diagrams: 06/05/17 04:37 06/05/17 04:37 Additional Labs: Microbiology 06/04/17 01:53 Venous blood - Left Arm Blood Culture - Preliminary Specimen has been received and culture in progress. No Growth to date. 06/04/17 01:48 Venous blood - Right Hand Blood Culture - Preliminary Specimen has been received and culture in progress. No Growth to date. 06/03/17 23:48 Urine voided Urine Culture - Preliminary Escherichia coli Laboratory Tests 06/03/17 06/03/17 06/05/17 01:13 22:28 04:37 Sodium 129 L Potassium 3.3 L Magnesium 2.1 B-Natriuretic Peptide 99.8 Phys Exam - Physical Examination Constitutional: NAD HEENT: PERRLA, moist MMs, sclera anicteric, oral pharynx no lesions Neck: no nodes, no JVD, supple Respiratory: no wheezing, no rales, no rhonchi, clear to auscultation bilateral Cardiovascular: RRR, no significant murmur, no rub, gallop Gastrointestinal: soft, non-tender, no distention, positive bowel sounds Neurological: non-focal, normal sensation, moves all 4 limbs Psychiatric: normal affect, A&O x 3 Skin: no rash, normal turgor, cap refill <2 seconds Dx/Plan (1) Nausea & vomiting Code(s): R11.2 - NAUSEA WITH VOMITING, UNSPECIFIED Status: Acute Comment: Antiemetics prn, likely due to UTI, monitor clinically for recurrence (2) E. coli UTI Code(s): N39.0 - URINARY TRACT INFECTION, SITE NOT SPECIFIED; B96.20 - UNSP ESCHERICHIA COLI THE CAUSE OF DISEASES CLASSD ELSWHR Status: Acute Comment: Start Macrobid 100mg BID, d/c Rocephin (3) Hyponatremia Code(s): E87.1 - HYPO-OSMOLALITY AND HYPONATREMIA Status: Acute Comment: Suspect due to poor po intake, improving, encourage increased po intake (4) Hypertension Code(s): I10 - ESSENTIAL (PRIMARY) HYPERTENSION Status: Chronic Qualifiers: Hypertension type: essential hypertension Qualified Code(s): I10 - Essential (primary) hypertension Comment: Labile, start Norvasc 5mg daily, continue Losartan 100mg daily, serial monitoring (5) Hypokalemia Code(s): E87.6 - HYPOKALEMIA Status: Acute Comment: Resolved after supplementation of KCL (6) Generalized weakness Code(s): R53.1 - WEAKNESS Status: Chronic Comment: High fall risk due to weakness, PT evaluation, plan to transfer to SNF in am - Plan plan discussed w/ family, continue antibiotics, PT/OT, social service liaison, out of bed/ambulate, DVT proph w/SCDs Stable overall -: Continue Macrobid 100mg BID -: Zofran prn nausea -: Ensure BID -: Contine Amlodipine and Losartan, monitor BP trend * Plan for d/c to [facility] in am
[2017-06-08] MEDS: cefTRIAXone\\ROCEPHIN 2 GM in Sodium Chloride 0.9% 100 ML IVPB SCH (20:04)
--- NOTE | 2017-06-08 21:32 | DIS ---
DATE OF ADMISSION: 06/04/2017 DATE OF DISCHARGE: 06/08/2017 DISCHARGE DIAGNOSES: 1. Nausea and vomiting, resolved. 2. Escherichia coli urinary tract infection, improved. 3. Hyponatremia, resolved. 4. Hypertension, labile. 5. Hypokalemia, resolved. 6. Generalized weakness. CONSULTATIONS: None. PERTINENT LABORATORY AND X-RAY FINDINGS: Sodium range between 129-141, potassium range between 3.3-4 .0, lactic acid level 0.7, magnesium level 2.1. LFTs within normal limits. BNP 100. Albumin 3.9. CBC showed a white blood cell count range between 7.0-7.4. Urine culture dated 06/03/2017 showed gre ater than 100,000 colonies of E. coli. Blood cultures x2 from 06/04/2017 showed no growth at [address] of the brain without contrast dated 06/03/2017 showed chronic ischemic white matter changes wi thout acute process. CT angiogram of the [place] dated 06/03/2017 showed no hemodynamically significant stenosis, occlusion, or aneurysmal formation. Portable chest x-ray dated 06/04/2017 pb wed no acute cardiopulmonary process. Abdominal radiographs dated 06/04/2017 showed no acute finding s. Scoliosis noted. HOSPITAL COURSE: The patient was initially admitted with nausea and vomiting and generalized weaknes s. The patient received IV fluids as well as a diagnosis of urinary tract infection with greater jenny n 100,000 colonies of E. coli species. The patient was continued on Rocephin 2 grams IV q.24 hours, transitioning to Macrobid after sensitivities were obtained. The patient's overall nausea and vomiti ng had improved by the time of discharge and the patient was tolerating regular oral intake. The pat ient was noted with mild metabolic derangements including hyponatremia and hypokalemia, improving wit h IV fluids and potassium supplementation. The patient was noted with labile hypertension with the a ddition of amlodipine to current losartan with overall improved blood pressure trend. The patient co ntinued to clinically stabilize during her hospital course. Due to the patient's decondition status, the patient was an appropriate candidate for ongoing skilled care and has been approved to transfer to [place], [place]. At the time of discharge, I have examined the patient and discusse d laboratory findings, discharge planning, and followup instructions. The patient and family have ve rbalized understanding and agreement. The patient overall clinically stable and ready for discharge on 06/08/2017. DISCHARGE MEDICATIONS: 1. Macrobid 100 mg 1 tab p.o. b.i.d. x5 days. 2. Amlodipine 5 mg one tab p.o. daily. 3. Clonidine 0.1 mg p.o. q.6 hours p.r.n. systolic over 170. 4. Pepcid 20 mg p.o. b.i.d. 5. Losartan 100 mg 1 tab p.o. daily. 6. [place] Thyroid 60 mg p.o. daily. FOLLOWUP: The patient will follow up with her primary care provider, Dr. Prieto Hernandez, after discharg e from [facility]. CONDITION ON DISCHARGE: Stable. ACTIVITY: Ad-holden. DIET: Heart healthy. CODE STATUS: FULL. DISPOSITION: Discharged to [place], [place] on 06/08/2017. Total time preparing and coordinating discharge 32 minutes.
[2017-06-09] MEDS: Thyroid 60 MG TAB PO SCH (05:43)
[2017-06-09 09:09] VITALS: BP 143/68; TEMP 98.4
[2017-06-09] MEDS: Nitrofurantoin Monohyd/M-Cryst 100 MG CAP PO SCH (09:15)
[2017-06-09] MEDS: Amlodipine 5 MG TAB PO SCH (09:27)
[2017-06-09] MEDS: Famotidine 20 MG TAB PO SCH (09:28)
[2017-06-09] MEDS: Losartan 25 MG TAB PO SCH (09:28)
== END 2017-06-09 14:22 | DRG 690 ==
LOC: ERS 21:53 → 2SW 06-04 01:44 → OBSVTOIN 06-05 19:26 → T4-A 06-06 00:46
PROVIDERS: ADMIT Internal Medicine Infectious Disease; ATTEND Internal Medicine Infectious Disease
DX: N39.0 Urinary tract infection, site not specified (principal); E87.1 Hypo-osmolality and hyponatremia; B96.20 Unspecified Escherichia coli [E. coli] as the cause of diseases classified elsewhere; I10 Essential (primary) hypertension; E87.6 Hypokalemia; M41.9 Scoliosis, unspecified; Z66 Do not resuscitate; Z86.73 Personal history of transient ischemic attack (TIA), and cerebral infarction without residual deficits; Z79.899 Other long term (current) drug therapy; Z91.040 Latex allergy status; Z88.5 Allergy status to narcotic agent; Z88.8 Allergy status to other drugs, medicaments and biological substances; Z88.1 Allergy status to other antibiotic agents; Z96.649 Presence of unspecified artificial hip joint; E89.0 Postprocedural hypothyroidism
CPT/HCPCS: 36415; 36416; 70450; 70496; 70498; 71045; 74018; 80048; 80053; 81003; 82553; 83605; 83735; 83880; 84484; 85007; 85025; 85027; 85610; 85730; 87040; 87077; 87086; 87186; 90471; 90670; 93005; 94760; 96365; 96366; 96375; A4216; G0009; G8978-GP-CL; G8979-GP-CI; G8987-GO-CJ; G8988-GO-CI; J0360; J0696; J1650; J2550; J7050; Q0162; S0028

== ENCOUNTER 2017-06-28 07:49 | Outpatient (CLI) | payer MEDICARE, OTHER ==
--- NOTE | 2017-06-28 11:25 | ULT ---
ULTRASOUND WITH DOPPLER DUPLEX VENOUS LOWER EXTREMITY RIGHT: CPT: 24869 ICD-10-PCS: B54D INDICATION: Pain, intermittent. TECHNIQUE: Color flow Doppler, spectral waveform analysis of pulsed Doppler, and martinez-scale imaging with mary rasheeda and augmentation, were used to evaluate the bilateral common femoral, femoral, popliteal, fuse cup expander ior tibial, and superficial femoral, veins; and the proximal portions of the profunda femoral and gre ater saphenous, veins. FINDINGS: Appropriate compressibility and flow within imaged deep vein system of right lower extremity. IMPRESSION: No deep venous thrombosis of the imaged right lower extremity. POS: [facility]
== END 2017-06-28 07:50 | disposition home or self-care (01) ==
LOC: ULT 07:49
PROVIDERS: ATTEND Family Medicine
DX: M79.661 Pain in right lower leg (principal)

== ENCOUNTER 2017-09-10 08:54 | Outpatient (CLI) | payer MEDICARE, OTHER ==
[2017-09-10 10:06] LABS: Estimated GFR-MDRD - POC Greater than 90
--- NOTE | 2017-09-10 12:19 | CT ---
CT ABDOMEN AND PELVIS WITH AND WITHOUT IV CONTRAST: Date: 09/10/17 HISTORY: Dysuria. Recurrent urinary tract infections. FINDINGS: Left kidney is significantly larger than the right. Small calcifications associated with the inferior pole right kidney are favored to be cortical, as they are in an area of scarring and likely represen t dystrophic calcifications. Each renal collecting system is decompressed. No urinary tract calcifica tions are apparent. Right ureter is diffusely distended, especially distally, and empties into the right side of the blad kiran dome with a wide mouth. There is circumferential wall thickening of the distal right ureter witho ut stranding in the adjacent fat. Urinary bladder is otherwise unremarkable. Bilateral breast implants are partially visualized. Hiatal hernia. Lobular cysts throughout the liver . Prominent arterial calcifications. Prominent degenerative changes thoracic spine with rightward con vex curvature. No evidence of bowel obstruction. IMPRESSION: 1. Postoperative right ureter with dilatation and wall thickening likely related to chronic reflux. 2. Scarring and dystrophic calcification at the inferior pole right kidney. 3. Hiatal hernia. 4. Atherosclerosis. POS: [facility]
--- NOTE | 2017-09-10 12:58 | RAD ---
IVP: History: Urinary retention. Prior right ureteral surgery. FINDINGS: [place] KUB shows a large amount of stool throughout the colon and rectum. Small bowel gas pattern is n onspecific. Phleboliths project over the pelvis. Renal outlines are obscured. CT images show symmetric opacification of each kidney. There is mild distention of each renal collect ing system and ureter. Distal right ureter is markedly dilated to the level of ectopic, post-surgical insertion of the right side of the bladder dome. No filling defects are apparent within the urinary bladder. Large amount of contrast/urine remains within the urinary bladder on the post void image. IMPRESSION: 1. Post-operative changes right ureter. 2. Large post void urinary bladder residual. POS: [facility]
[2017-09-10] MEDS ORDERED: Iopamidol 370 76% 100 ML VIAL ONE (14:49)
== END 2017-09-10 08:55 | disposition home or self-care (01) ==
LOC: BICCT 08:54 → CT 08:55
PROVIDERS: ATTEND Urology
DX: R33.9 Retention of urine, unspecified (principal); N28.89 Other specified disorders of kidney and ureter; K44.9 Diaphragmatic hernia without obstruction or gangrene; I70.90 Unspecified atherosclerosis; N28.82 Megaloureter; R93.41 Abnormal radiologic findings on diagnostic imaging of renal pelvis, ureter, or bladder; Z98.890 Other specified postprocedural states; Z87.440 Personal history of urinary (tract) infections
CPT/HCPCS: 74178; 74410; 82565

== ENCOUNTER 2018-05-22 09:16 | Outpatient (CLI) | payer MEDICARE, OTHER ==
--- NOTE | 2018-05-22 13:58 | PET ---
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 Radiotracer: 12.5 mCi fluorine 18 FDG IV. FINDINGS: There is a large hypermetabolic mass localizing to the region anorectal verge, with maximum SUV of approximately 9.8. Gays of soft tissue mass within this region is approximately 6.7 cm in diameter, within limitations of noncontrast attenuation correction CT imaging There are no hypermetabolic metastatic lesions identified within the neck, chest and abdomen. Photope raymon defect of the posterior segment right hepatic lobe, and also seen within the central aspect of th e liver near the junction of left and right hepatic lobe present, indicating hepatic cyst formation. Incidental note of prominent dextroscoliosis of the thoracolumbar spine. IMPRESSION: Evidence of malignancy centered about the anal rectal verge. No scintigraphic evidence to indicate distant metastatic disease.
== END 2018-05-22 09:17 | disposition home or self-care (01) ==
LOC: PET 09:16
PROVIDERS: ATTEND Radiology Radiation Oncology
DX: C21.0 Malignant neoplasm of anus, unspecified (principal)
CPT/HCPCS: 78815; A9552

== ENCOUNTER 2018-05-30 09:29 | Day surgery (SDC) | payer MEDICARE, OTHER ==
[2018-05-29 16:38] VITALS: BMI 22.8
[2018-05-30 10:18] LABS: #Eosinphils 0.1 thou/uL (0.0-0.7); #Monocytes 0.6 thou/uL (0.11-0.59); #Neutrophils 7.2 thou/uL (1.40-6.50); %Basophils 0.4 % (0.0-1.0); %Eosinophils 0.8 % (0.0-10.0); %Lymphocytes 11.5 % (21.0-51.0); %Monocytes 6.9 % (0.0-10.0); %Neutrophils 80.3 % (42.0-75.0); Hemoglobin 13.4 g/dL (12.0-16.0); Mean Corpuscular HGB CONC 33.2 g/dL (32.0-36.0); Mean Corpuscular Hemoglobin 31.6 pg (27.0-31.0); Mean Corpuscular Volume 95.1 fL (78.0-98.0); Mean Platelet Volume 6.6 fL (7.4-10.4); Platelet Count 299 thou/uL (130-400); RBC Distribution Width 12.7 % (11.5-14.5); Red Blood Cell (RBC) Count 4.23 mill/uL (4.20-5.40)
[2018-05-30 10:45] LABS: ALT (SGPT) 34 U/L (8-55); AST (SGOT) 40 U/L (5-34); Albumin 4.4 g/dL (3.4-4.8); Alkaline Phosphatase 83 U/L (40-150); Anion Gap 11 mmol/L (10-20); BUN (Urea Nitrogen) 17 mg/dL (9.8-20.1); Bilirubin, Total 0.8 mg/dL (0.2-1.2); Calc. Creatinine Clearance 54 mL/min (70-130); Calcium 10.1 mg/dL (7.8-10.44); Carbon Dioxide 31 mmol/L (23-31); Chloride 104 mmol/L (98-107); Estimated GFR-MDRD 90; Globulin 2.9 g/dL (2.4-3.5); Glucose 99 mg/dL (83-110); Protein, Total 7.3 g/dL (6.0-8.3); Sodium 142 mmol/L (136-145)
[2018-05-30] MEDS ORDERED: Ketamine 50 MG/ML (10ML VIAL) ONE (12:26)
[2018-05-30] MEDS ORDERED: Propofol 500 MG/50 ML VIAL ONE (12:26)
[2018-05-30] MEDS ORDERED: Fentanyl 100 MCG/2 ML VIAL ONE (12:26)
[2018-05-30] MEDS ORDERED: Midazolam HCl 2 mg/2 ml Vial ONE (12:26)
[2018-05-30] MEDS ORDERED: Bupivacaine HCl 0.5%/Epinephrine 1:200,000/PF 30 ml Vial ONE (12:31)
[2018-05-30] MEDS ORDERED: Lidocaine 2% PF 5 ML VIAL ONE (12:31)
[2018-05-30] MEDS ORDERED: Acetaminophen 500 MG TAB ONE (14:01)
--- NOTE | 2018-05-30 14:01 | RAD ---
ONE VIEW CHEST: HISTORY: Status post Thrasher catheter placement. COMPARISON: 06/04/2017. FINDINGS: Interval placement of right-sided Thrasher catheter with the distal tip projecting over the right atri um. There is no pneumothorax. Atherosclerosis of the aorta. Normal cardiac silhouette. Chronic changes of the lung parenchyma. N o pneumothorax. There is diffuse bone demineralization. Hiatal hernia is noted. IMPRESSION: 1. Right-sided Thrasher catheter placement. 2. No pneumothorax. POS: OFF
--- NOTE | 2018-05-30 15:22 | OP ---
DATE OF PROCEDURE: 05/30/2018 PREOPERATIVE DIAGNOSIS: Squamous cell carcinoma of the anus. POSTOPERATIVE DIAGNOSIS: Squamous cell carcinoma of the anus. PROCEDURE PERFORMED: Right subclavian vein single-lumen 9.6-Upper Sorbian Thrasher catheter cuffed tunneled fluoroscopy used. ANESTHESIA: TIVA with local 0.5% Marcaine with epinephrine 30 mL mixed with 2% Xylocaine 10 mL. DESCRIPTION OF PROCEDURE: The patient was taken to the operating room, where under intravenous sedation, neck and chest prepared with ChloraPrep and draped in routine fashion. Local anesthetic was infiltrated in the skin and subcutaneous tissue about the operative site. Trocar catheter introduced into the right subclavian vein. Infraclavicular approach and J-wire threaded, trocar catheter removed. Skin site was enlarged sharply. Dilator and Peel-Away sheath placed with J-wire in the superior vena cava. Dilator and J-wire were removed. Catheter was placed through the Peel-Away sheath after been tailored to length. Cuff placed beneath the skin as the Peel-Away sheath was removed. Fluoroscopically, catheter was noted to be in good position. Each port aspirated blood, flushed with heparinized saline solution. Sterile dressings applied. Catheters had been secured with 3-0 nylon suture. Job ID: [id number]
[2018-05-30] MEDS ORDERED: Lidocaine 1% PF 5 ML VIAL ONE (16:37)
[2018-05-30] MEDS ORDERED: PROPOFOL 200 MG/20 ML VIAL ONE (16:37)
--- NOTE | 2018-06-02 22:33 | EKG ---
Test Reason : PREOP Blood Pressure : / mmHG Vent. Rate : 085 BPM Atrial Rate : 085 BPM P-R Int : 160 ms QRS Dur : 118 ms QT Int : 386 ms P-R-T Axes : 051 -36 084 degrees QTc Int : 459 ms Normal sinus rhythm Left axis deviation Low voltage QRS Cannot rule out Anteroseptal infarct , age undetermined Abnormal ECG When compared with ECG of 03-JUN-2017 22:08, Premature ventricular complexes are no longer Present Left bundle branch block is no longer Present Minimal criteria for Anteroseptal infarct are now Present Confirmed by Jacinto CAVANAUGH ([id number]) on 06/02/2018 10:33:11 PM Referred By: ALYSON Confirmed By:Jacinto CAVANAUGH
== END 2018-05-30 14:40 | disposition home or self-care (01) ==
LOC: SDC 09:29
PROVIDERS: ATTEND Specialist
PROC: 05H533Z Insertion of Infusion Device into Right Subclavian Vein, Percutaneous Approach (ICD-10-PCS; principal; 2018-05-30)
PROC: B516ZZA Fluoroscopy of Right Subclavian Vein, Guidance (ICD-10-PCS; 2018-05-30)
DX: C21.0 Malignant neoplasm of anus, unspecified (principal); Z79.899 Other long term (current) drug therapy; Z88.5 Allergy status to narcotic agent; Z88.8 Allergy status to other drugs, medicaments and biological substances; Z91.040 Latex allergy status
CPT/HCPCS: 36561; 71045; 80053; 85025; 93005; C1751; 36415; 93010; J0670; J0690; J1642; J2001; J2250; J2704; J3010

== ENCOUNTER 2018-06-29 22:23 | Inpatient (IN) | payer MEDICARE, OTHER ==
[2018-06-29] MEDS ORDERED: Ondansetron PF 4 MG/2 ML Vial ONE (22:34)
[2018-06-29] MEDS ORDERED: Morphine 4 MG/ML VIAL ONE (22:34)
[2018-06-29 22:56] LABS: #Basophils 0.1 thou/uL (0.0-0.2); #Eosinphils 0.2 thou/uL (0.0-0.7); #Lymphocytes 1.6 thou/uL (1.20-3.40); #Monocytes 0.7 thou/uL (0.11-0.59); #Neutrophils 9.6 thou/uL (1.40-6.50); %Basophils 0.6 % (0.0-1.0); %Eosinophils 1.6 % (0.0-10.0); %Lymphocytes 13.3 % (21.0-51.0); %Monocytes 5.6 % (0.0-10.0); %Neutrophils 78.8 % (42.0-75.0); Hemoglobin 11.3 g/dL (12.0-16.0); Mean Corpuscular HGB CONC 32.3 g/dL (32.0-36.0); Mean Corpuscular Hemoglobin 31.8 pg (27.0-31.0); Mean Corpuscular Volume 98.5 fL (78.0-98.0); Mean Platelet Volume 6.2 fL (7.4-10.4); Platelet Count 377 thou/uL (130-400); RBC Distribution Width 13.1 % (11.5-14.5); Red Blood Cell (RBC) Count 3.56 mill/uL (4.20-5.40); White Blood Cell (WBC) Count 12.1 thou/uL (4.8-10.8)
--- NOTE | 2018-06-29 23:05 | RAD ---
Exam:Right wrist 3 views HISTORY: Fall. Pain. COMPARISON: None FINDINGS: Diffuse bone demineralization. Distal radius fracture. Limited evaluation of the carpal bon es. The intercarpal and radiocarpal joint spaces do not appear to be normal. Possible carpal bone injury cannot be excluded. IMPRESSION: 1. Distal radius fracture 2. Diffuse bone demineralization 3. Intercarpal and radiocarpal joint spaces are not well demonstrated. If there is concern for possib le fractures of the proximal or distal carpal row, consider additional evaluation.
--- NOTE | 2018-06-29 23:06 | RAD ---
Exam: Chest one view HISTORY:Fall. Comparison: 06/04/2017 FINDINGS: Cardiac silhouette:Enlarged. Pulmonary vessels: Normal Costophrenic angles: Clear LUNGS: Hyperinflation with chronic changes. Atherosclerosis of the aorta and hiatal hernia are redemonstrated Pneumothorax: None Osseous abnormalities: Diffuse bone demineralization. Old posterior right rib fracture. IMPRESSION: 1. Hyperinflation. Chronic changes. 2. Hiatal hernia 3. Atherosclerosis
--- NOTE | 2018-06-29 23:07 | RAD ---
Exam:2 views right hip HISTORY: Fall. Pain. COMPARISON: None FINDINGS: Right intertrochanteric fracture with associated avulsion and angulation. There is deminera lization at the fracture site. The possibility of a pathologic fracture cannot be excluded. Patient has a history of squamous cell carcinoma anus. IMPRESSION: Possible pathologic fracture involving the right intertrochanteric region.
[2018-06-29 23:20] LABS: ALT (SGPT) 21 U/L (8-55); AST (SGOT) 27 U/L (5-34); Albumin 4.1 g/dL (3.4-4.8); Alkaline Phosphatase 69 U/L (40-150); Anion Gap 13 mmol/L (10-20); BUN (Urea Nitrogen) 25 mg/dL (9.8-20.1); Bilirubin, Total 0.6 mg/dL (0.2-1.2); Calc. Creatinine Clearance 0 mL/min (70-130); Calcium 9.7 mg/dL (7.8-10.44); Carbon Dioxide 28 mmol/L (23-31); Chloride 97 mmol/L (98-107); Estimated GFR-MDRD 82; Globulin 2.8 g/dL (2.4-3.5); Glucose 112 mg/dL (83-110); Protein, Total 6.9 g/dL (6.0-8.3); Sodium 134 mmol/L (136-145)
[2018-06-30] MEDS ORDERED: Fentanyl 100 MCG/2 ML VIAL ONE ×3 (00:12→14:25)
[2018-06-30] MEDS ORDERED: Ondansetron ODT 4 MG TAB PO PRN (00:23)
[2018-06-30] MEDS ORDERED: hydrALAZINE 20 MG/ML VIAL SLOW IVP PRN (00:23)
[2018-06-30] MEDS ORDERED: Ondansetron PF 4 MG/2 ML Vial IVP PRN (00:23)
[2018-06-30] MEDS ORDERED: Dextrose 50% Abboject 50 ML SYRINGE SLOW IVP PRN (00:23)
[2018-06-30] MEDS ORDERED: Dextrose 5% in Water 1,000 ML IV PRN (00:23)
[2018-06-30] MEDS ORDERED: Sodium Chloride 0.9% 1,000 ML IV SCH (00:30)
[2018-06-30] MEDS ORDERED: Acetaminophen 1,000 MG in Premix Bag 1 BAG IVPB SCH (01:00)
[2018-06-30] MEDS: Sodium Chloride 0.9% 1,000 ML IV SCH ×3 (01:57→17:20)
[2018-06-30] MEDS: Morphine 2 MG/ML SYRINGE SLOW IVP PRN ×4 (02:03→19:27)
[2018-06-30 02:22] VITALS: BMI 20.5
[2018-06-30 05:23] LABS: #Eosinphils 0.1 thou/uL (0.0-0.7); #Monocytes 0.9 thou/uL (0.11-0.59); #Neutrophils 17.4 thou/uL (1.40-6.50); %Basophils 0.1 % (0.0-1.0); %Eosinophils 0.4 % (0.0-10.0); %Lymphocytes 5.2 % (21.0-51.0); %Monocytes 4.7 % (0.0-10.0); %Neutrophils 89.7 % (42.0-75.0); Mean Corpuscular HGB CONC 33.5 g/dL (32.0-36.0); Mean Corpuscular Volume 98.8 fL (78.0-98.0); Mean Platelet Volume 6.3 fL (7.4-10.4); Platelet Count 334 thou/uL (130-400); RBC Distribution Width 12.9 % (11.5-14.5); Red Blood Cell (RBC) Count 3.02 mill/uL (4.20-5.40); White Blood Cell (WBC) Count 19.4 thou/uL (4.8-10.8)
[2018-06-30] MEDS: Ketorolac Tromethamine 30 MG/ML VIAL IVP SCH ×3 (05:30→17:15)
[2018-06-30] MEDS: Acetaminophen 1,000 MG in Premix Bag 1 BAG IVPB SCH ×3 (05:30→17:14)
[2018-06-30] MEDS: traMADol HCl 50 MG TAB PO SCH ×4 (05:30→17:35)
[2018-06-30 05:42] LABS: Anion Gap 11 mmol/L (10-20); BUN (Urea Nitrogen) 17 mg/dL (9.8-20.1); Calc. Creatinine Clearance 61 mL/min (70-130); Carbon Dioxide 24 mmol/L (23-31); Chloride 103 mmol/L (98-107); Estimated GFR-MDRD Greater than 90; Glucose 106 mg/dL (83-110); Magnesium 2.3 mg/dL (1.6-2.6); Sodium 134 mmol/L (136-145)
[2018-06-30 05:48] LABS: Phosphorus 3.1 mg/dL (2.3-4.7)
[2018-06-30 06:05] LABS: Bilirubin Negative (Negative); Blood, Urine Negative (Negative); Clarity CLEAR (Clear); Glucose, Urine (Dipstick) Negative (Negative); Leukocyte Negative (Negative); Nitrite Negative (Negative); Protein, Urine (Dipstick) Negative (Neg-Trace); Specific Gravity, Urine 1.019 (1.002-1.036); Urobilinogen 0.2 mg/dL (0.2-1.0)
--- NOTE | 2018-06-30 07:17 | HP ---
This is Lizzie Roy NP dictating a report for Dakota Haile DO. CONSULT: Connor Monreal MD HISTORY OF PRESENT ILLNESS: This is an 88-year-old female, who presented to the emergency room via ground EMS with mechanical fall. The patient reports she lives at [facility] where she tripped and fell as she was getting ready to go to bed. The patient denies hitting her head. The patient denies any loss of consciousness. The patient states she landed onto her right hip and caught herself with her right hand. The patient denies any other injuries or complaints. The patient denies any chest pain, shortness of breath, or dizziness prior to event. The patient is currently under holistic cancer treatment for cancer of the anus, getting weekly intravenous vitamins and minerals. The patient denies any chemo or radiation therapy. The patient also reports recent frequent UTIs, which she has been hospitalized for. The patient does see Urology and is on prophylactic treatment for UTIs and the patient also self caths herself 3 times a day. The patient reports normally walks without any assistance, but after the last UTI, she has been a little bit weaker than normal and has been instructed to use a walker or cane. PAST MEDICAL HISTORY: Prolapsed bladder, right bundle-branch block, TIA, hypertension, anus cancer squamous cell, and macular degeneration under control. PAST SURGICAL HISTORY: Bladder flap in her 20s, appendectomy, hysterectomy, left hip surgery 6 years ago, and partial thyroidectomy. SOCIAL HISTORY: The patient denies any alcohol or drug use. The patient denies smoking history. The patient lives at [facility]. The patient reports her approximately 5 months ago. ALLERGIES: LATEX, CIPRO, CODEINE, AND DEMEROL MAKE HER ITCH. HOME MEDICATIONS: 1. Holistic vitamins and minerals weekly via PICC line. 2. Multivitamin. 3. [place] Thyroid 60 mg daily. 4. losartan once a day. 5. Unknown antibiotic for prophylactic UTIs. REVIEW OF SYSTEMS: A 10-point review of systems is negative unless otherwise stated in the above HPI. OBJECTIVE: VITAL SIGNS: Blood pressure 167/95, pulse 101, temperature 98.1, respirations 19, and SpO2 of 95% on room air. GENERAL: The patient is awake and alert, in no distress. The patient well-appearing for her age. The patient with GCS of 15. HEENT: Normocephalic and atraumatic. Slightly dry mucous membranes. Pupils are equal, round, and reactive. Trachea midline. NECK: With normal range of motion. LUNGS: Bilateral breath sounds clear. No wheezing, rales, or rhonchi. CHEST: Movement symmetrical. HEART: Regular rate and rhythm. No murmur noted. Positive distal pulses 2+ in the upper and lower extremities. No pedal edema. ABDOMEN: Soft, nontender, and nondistended. Active bowel sounds. EXTREMITIES: Right lower extremity is shortened and externally rotated. Obvious deformity to the radial aspect of right wrist, splint in place with good cap refill. Positive movement. Sensation intact in all extremities. NEURO: The patient is oriented to person, place, time, and event. Normal speech. No focal motor deficits or sensory deficits. LABORATORY DATA: WBC 12.1, RBC 3.56, hemoglobin 11.3, hematocrit 35.1, MCV is 98.5, and platelets 377. Sodium 134, potassium 4.0, chloride 97, anion gap 13, carbon dioxide 28, BUN 25, and creatinine 0.68. Estimated GFR 82, glucose 112, calcium 9.7, total bilirubin 0.6, AST 27, ALT 21, alkaline phosphate 69, serum total protein 6.9, albumin 4.1, globulin 2.8, albumin globulin ratio 1.5. Urinalysis pending. DIAGNOSTICS: A 12-lead EKG with no acute finding. No ST elevation or T-wave inversions. Chest x-ray impression, hyperinflation. Hiatal hernia, atherosclerosis. Hip x-ray impression, possible pathologic fracture involving the right intertrochanteric region. Wrist x-ray impression, distal radius fracture, distal bone demineralization. IMPRESSION: 1. Mechanical fall. 2. Right intertrochanteric hip fracture. 3. Right radial fracture. 4. Acute traumatic pain. 5. History of squamous cell anus cancer. 6. Macrocytic anemia. PLAN: We will place the patient on surgical ortho floor. The patient will be n.p.o. overnight. Plan is for Dr. Monreal to take the patient to the OR for repair of the right hip. The patient currently has her right wrist splinted by the ER physician. We will provide comfort measures and pain control. We will place the patient on gastric prophylaxis. We will also place the patient on mechanical DVT prophylaxis. We will place Rincon as the patient is concerned as she self caths herself 3 times a day and she is right handed and has the right wrist fracture. The plan will be discussed with Dr. Haile after this dictation. Job ID: [id number] MTDD
[2018-06-30 07:41] LABS: INR-International Normal Ratio 1.1; Prothrombin Time 13.9 SEC (12.0-14.7)
--- NOTE | 2018-06-30 07:47 | RAD ---
XR Femur Rt 2 View STANDARD History: [Intertrochanteric fracture] Comparison: Radiograph prior day Findings: Similar appearance intertrochanteric fracture right femur with medial displacement of the l leia trochanter. Similar varus angulation. Impression: Similar appearance intertrochanteric fracture right femur.
[2018-06-30] MEDS ORDERED: Famotidine/PF 20 mg/2ml Vial SLOW IVP SCH (09:00)
[2018-06-30] MEDS ORDERED: PROPOFOL 200 MG/20 ML VIAL ONE (09:16)
[2018-06-30] MEDS ORDERED: Ondansetron PF 4 MG/2 ML Vial ONE ×2 (09:16→14:13)
[2018-06-30] MEDS ORDERED: Rocuronium Bromide 10 MG/ML (10ML VIAL) ONE (09:16)
[2018-06-30] MEDS ORDERED: Lidocaine 1% PF 5 ML VIAL ONE (09:16)
[2018-06-30] MEDS ORDERED: Glycopyrrolate 0.2 MG/ML 5 ML SYRINGE ONE (09:16)
[2018-06-30] MEDS ORDERED: PHENYLEPHRINE-NS 100 MCG/ML 10 ML SYRINGE ONE (09:16)
[2018-06-30] MEDS: Polyethylene Glycol 3350 17 GM Packet PO SCH (09:31)
[2018-06-30] MEDS: Senokot S 8.6-50 MG TAB PO SCH ×2 (09:31→20:09)
[2018-06-30] MEDS ORDERED: Tranexamic Acid 1,000 MG/10 ML VIAL ONE (11:57)
[2018-06-30] MEDS ORDERED: Sodium Chloride 0.9% 100 ML ONE (11:59)
[2018-06-30] MEDS ORDERED: Promethazine HCl 25 MG/ML VIAL SLOW IVP PRN (14:11)
[2018-06-30] MEDS ORDERED: Promethazine HCl 25 MG/ML VIAL IM PRN (14:11)
[2018-06-30] MEDS ORDERED: Ondansetron HCl/PF 4 MG/2 ML Vial IVP PRN (14:11)
[2018-06-30] MEDS ORDERED: Promethazine HCl 25 MG/ML VIAL ONE (14:13)
--- NOTE | 2018-06-30 14:37 | RAD ---
RIGHT FEMUR 2 VIEWS: HISTORY: ORIF right hip/femur FINDINGS: 4 spot fluoroscopic intraoperative images of the right femur demonstrate interval reduction and inter nal fixation of the comminuted intertrochanteric fracture noted on earlier exam of same date.
--- NOTE | 2018-06-30 14:40 | RAD ---
XR Wrist Rt 2 View History: [Close reduction] Comparison: Wrist radiograph prior day Findings: 2 fluoroscopic images were obtained. Improved postreduction alignment of the distal radius fracture. Impression: Improved alignment postreduction.
--- NOTE | 2018-06-30 15:32 | CON ---
DATE OF CONSULTATION: CHIEF COMPLAINT: Right hip, right wrist pain. HISTORY OF PRESENT ILLNESS: Elizabeth is a pleasant 88-year-old female, status post ground level fall. She was at her house, was reaching onto the phone, just lost her balance and fell on her right hip after Mother's Day. The patient noted immediate pain in her right hip and right wrist. She called EMS and was brought to [place] by ambulance. She is resting comfortably in bed, evaluated by ER as well as Trauma. PAST MEDICAL HISTORY: Includes right bundle branch block, TIA, hypertension, prolapsed bladder. The patient has a history of an appendectomy, bladder lift, left hip intramedullary nailing for hip fracture, thyroidectomy, and hysterectomy. MEDICATIONS: The patient takes [place] Thyroid, losartan, multivitamin, clonidine, unknown antibiotic. ALLERGIES: INCLUDING LATEX, CODEINE, CIPRO, AND MEPERIDINE. SOCIAL HISTORY: Occasional drinker, nonsmoker. No illicit drug use. Retired. Lives at [facility]. The patient recently lost her five months ago, and she has a family in [facility]. PHYSICAL EXAMINATION: VITAL SIGNS: Today, temperature 98, heart rate 92, respiratory rate 18, oxygen saturation 98%, and blood pressure 161/73. GENERAL: Alert and oriented female, in no acute distress, resting comfortably in bed. EXTREMITIES: Right upper extremity splint is in place. Fingers NVID. She is able to flex and extend her fingers. She has sensation intact distally to light touch. Elbow and shoulder motion are intact. Right lower extremity, the patient plantarflex, dorsiflex, and wiggles her toes. She has sensation intact in L4 through S1 distribution. Brisk cap refill. She has shortened and externally rotated right hip pain with external rotation. No effusion of her right knee. LABORATORY DATA: H and H 10 and 29. Chemistry is creatinine 0.54. The patient has urine, which is negative. The patient is pending INR. X-rays of her right hip show a three-part basicervical intertrochanteric with subtrochanteric/ intertrochanteric reverse obliquity fracture, diffuse osteopenia. X-rays; the patient's right wrist show diffuse osteopenia with dorsally angulated Colles fracture with no other placement. IMPRESSION: 1. Right subtrochanteric intertrochanteric hip fracture. 2. Right distal radius apparent extra-articular diffuse. 3. Osteopenia. 4. Thyroid disease. 5. Hypertension. ASSESSMENT AND PLAN: The patient will be consented on-call to the OR for IM nail for the right hip and possible open reduction and internal fixation of right wrist versus closed reduction and splinting. The patient was made n.p.o. to be consented, received preop antibiotics, Ancef 2 g on-call to the OR. I discussed with the patient risks and benefits of surgery, pain, scar, bleeding, infection, damage to vital structures, decreased range of motion and strength, nonunion, malunion, fracture above or below, loss of life or limb, deep venous thrombosis. She understands these risks and benefits. We will proceed with surgery this afternoon once OR is available. Job ID: [id number] [facility]
--- NOTE | 2018-06-30 15:59 | OP ---
DATE OF PROCEDURE: 06/30/2018 PREOPERATIVE DIAGNOSES: 1. Right intertrochanteric/subtrochanteric femur fracture. 2. Right distal radius fracture, extra-articular. PROCEDURES PERFORMED: 1. Right intramedullary nailing of intertrochanteric/subtrochanteric femur fracture. 2. Distal radius closed reduction and short-arm casting. DISTANCE EDUCATION COORDINATOR: Nico Arthur PA-C ANESTHESIA: Jh Cruz MD The patient received a general endotracheal intubation. ESTIMATED BLOOD LOSS: 150 mL. TOURNIQUET TIME: None. IMPLANTS: Synthes 11 x 380 mm x 130-degree TFNA 5 mm distal locking screw and a 90 mm TFNA screw. ANTIBIOTICS: Ancef 2 g. The patient received TXA 1 g. COMPLICATIONS: None. HISTORY OF PRESENT ILLNESS: Ms. Johnson is an 88-year-old female, who presents after a ground-level fall with a right distal radius and a right femur fracture. I discussed with the patient the risks and benefits of the surgery to include pain, scar, bleeding, infection, damage to vital structures, decreased range of motion or strength, nonunion, malunion, fracture above or below the stem, need for further surgeries, loss of life or limb. I discussed with the patient that I would evaluate her right wrist at the same time and either a short-arm splint versus open reduction and internal fixation. I discussed the risks and benefits of surgery to include pain, scar, bleeding, infection, above risks, loss of reduction, malreduction, decreased range of motion and strength. She understood these risks and benefits, and elected to proceed. DESCRIPTION OF PROCEDURE: Time-out was performed designating the right upper extremities and right lower extremities as the operative site based on site, consents, and markings. Procedure #1: We placed the patient in a fracture table, placed in traction, bony prominences well padded, prepped and draped the right lower extremity, made an incision down through skin, down the IT band, starting point in the greater trochanter. We looked under fluoroscopic guidance for a starting point. Being happy with it, we passed our opening reamer, passed our ball-tipped guidewire, passing it down the bone and actually passed out the distal femur because of poor bone quality. We pulled back, measured 380 of the tip and reamed just an 11 and passed an 11 mm nail. It was about 10 mm long and undesired, but overall had good alignment and position. We moved back to the center position. We had adducted the leg with respect to the position of her neck and foot and to try to match the valgus position of her head and neck. We inserted guide pin center-center to slightly low, but overall liked the position. We drilled and then compressed a 90 mm lag screw. We came down to lock from superiorly the nail. It helped a lot to slide. We came down and loosen off one turn to allow the screw to slide. We then moved distally, did perfect [place] of skin stab incision, drilled a single 5.0 screw and placed it. We then washed and closed with 0, 2-0, and court. Procedure #2: After time-out, the patient's right upper extremity was evaluated. She did have an extra-articular fracture, but her bone density was so poor, I was really concerned about putting potential hardware, potential cut out and potential issues. Given the evidence of conservative management being similar to operative management and she had a fairly good reduction with closed reduction, I elected for a sugar-tong splint. We reduced under AP and lateral radiographs and fluoro, placed a well-molded sugar-tong splint, well padded. She has a very fragile skin, which we will have to monitor during the postoperative period. This was rolled on. We completed this procedure. The patient will be weightbearing as tolerated through her right lower extremity, weightbearing as tolerated to the left lower and left upper extremities. The patient will receive 24 hours of antibiotics. She will need fdc placement. She will be transitioned to a cast in about 2 weeks. The patient will require DVT prophylaxis with aspirin postoperatively. Job ID: [id number]
--- NOTE | 2018-06-30 16:03 | PRG ---
DATE OF SERVICE: 06/30/2018 SUBJECTIVE: Ms. Johnson is a patient well known to me. She has squamous cell carcinoma of the anus and has had a biopsy documenting that and referred to Oncology, Dr. Barnes, for radiation chemotherapy. She has seen Dr. Wilcox. The patient, however, has decided to treat this holistically without this treatment. She fell and fractured her hip and radius. Plan is ORIF today. I saw her today prior to going on to the operating room. OBJECTIVE: VITAL SIGNS: Temperature 98 degrees, heart rate 90, and blood pressure 118/62. LUNGS: Clear to auscultation. CARDIAC: Regular rate and rhythm. No murmur or gallop. ABDOMEN: Soft and nontender. LABORATORY DATA: White count 19 and hemoglobin 10. Basic metabolic profile normal. She has a Thrasher catheter. ASSESSMENT AND PLAN: Planned open reduction and internal fixation, right radius and femur, intertrochanteric, right, today. Trauma Service will continue to follow. I have placed rehab consult for discharge disposition anticipating discharge to rehab mid to later week. Job ID: [id number]
[2018-06-30] MEDS ORDERED: CEFAZOLIN 2 GM in Premix Bag 1 BAG IVPB SCH (16:26)
--- NOTE | 2018-06-30 16:44 | PRG ---
DATE OF SERVICE: 06/30/2018 SUBJECTIVE: This is an 88-year-old female, status post ground level fall with a right radial wrist fracture and right intertrochanteric hip fracture. The patient was diagnosed with squamous cell anus cancer approximately 3 months ago and is receiving holistic vitamins and minerals for treatment. The patient had no overnight event. The patient is about to go to the OR for repair. OBJECTIVE: VITAL SIGNS: Temperature 98.8, pulse 90, respirations 16, SpO2 is 96%, and blood pressure 118/62. GENERAL: The patient awake, alert, in no distress. Lips slightly dry. CARDIOVASCULAR: Regular rate and rhythm. No distress. EXTREMITIES: Positive distal pulses. NEUROLOGIC: No focal deficit. LABORATORY DATA: WBC 19.4, RBC 3.02, hemoglobin 10.0, hematocrit 29.8, and platelets 334. PT 13.9, INR 1.1, and APTT 32. Sodium 134, potassium 4.0, chloride 103, BUN 17, creatinine 0.50, estimated GFR greater than 90, glucose 106, calcium 9.0, phosphorus 3.1, and magnesium 2.3. Urinalysis negative for UTI, the patient with ketones only. IMPRESSION: 1. Status post mechanical fall. 2. Right subtrochanteric/intertrochanteric hip fracture. 3. Right distal radius fracture. 4. Osteopenia. 5. Thyroid disease. 6. Hypertension. PLAN: The patient will go to the OR with Dr. Monreal this morning. We will place Physical and Occupational Therapy consult after OR. We will place the patient on a pain regimen. We will start DVT prophylaxis once the patient is out of the OR with a stable hemoglobin. We will place the patient on a regular diet as tolerated after OR. We will also place a rehab screen. The patient was examined with Dr. Graves this morning during rounds. Job ID: [id number]
[2018-06-30] MEDS ORDERED: Ibuprofen 600 MG TAB PO SCH (21:30)
[2018-06-30] MEDS: CEFAZOLIN 2 GM in Premix Bag 1 BAG IVPB SCH (21:55)
[2018-06-30] MEDS: Acetaminophen 500 MG TAB PO SCH (21:55)
[2018-06-30] MEDS: Ibuprofen 200 MG TAB PO SCH (21:55)
[2018-06-30] MEDS ORDERED: Ketorolac Tromethamine 30 MG/ML VIAL IVP PRN (23:59)
[2018-07-01] MEDS: traMADol HCl 50 MG TAB PO SCH ×4 (01:00→17:50)
[2018-07-01] MEDS: Acetaminophen 500 MG TAB PO SCH ×4 (03:53→20:30)
[2018-07-01] MEDS: CEFAZOLIN 2 GM in Premix Bag 1 BAG IVPB SCH (06:09)
[2018-07-01] MEDS: Ibuprofen 200 MG TAB PO SCH (06:10)
[2018-07-01 07:10] LABS: Magnesium 2.2 mg/dL (1.6-2.6); Phosphorus 4.1 mg/dL (2.3-4.7)
[2018-07-01 07:39] LABS: #Basophils 0.1 thou/uL (0.0-0.2); #Eosinphils 0.1 thou/uL (0.0-0.7); #Lymphocytes 1.5 thou/uL (1.20-3.40); #Monocytes 1.1 thou/uL (0.11-0.59); #Neutrophils 11.4 thou/uL (1.40-6.50); %Basophils 0.8 % (0.0-1.0); %Eosinophils 0.9 % (0.0-10.0); %Lymphocytes 10.2 % (21.0-51.0); %Monocytes 7.7 % (0.0-10.0); %Neutrophils 80.3 % (42.0-75.0); Hemoglobin 6.4 g/dL (12.0-16.0); Mean Corpuscular Hemoglobin 33.9 pg (27.0-31.0); Mean Corpuscular Volume 99.7 fL (78.0-98.0); Mean Platelet Volume 6.5 fL (7.4-10.4); Platelet Count 277 thou/uL (130-400); RBC Distribution Width 13.4 % (11.5-14.5); White Blood Cell (WBC) Count 14.2 thou/uL (4.8-10.8)
[2018-07-01 07:41] LABS: Anion Gap 8 mmol/L (10-20); BUN (Urea Nitrogen) 16 mg/dL (9.8-20.1); Calc. Creatinine Clearance 51 mL/min (70-130); Calcium 8.3 mg/dL (7.8-10.44); Carbon Dioxide 24 mmol/L (23-31); Chloride 108 mmol/L (98-107); Estimated GFR-MDRD Greater than 90; Glucose 95 mg/dL (83-110); Potassium 4.2 mmol/L (3.5-5.1); Sodium 136 mmol/L (136-145)
[2018-07-01] MEDS: Famotidine 20 MG TAB PO SCH ×2 (08:37→20:30)
[2018-07-01] MEDS: Senokot S 8.6-50 MG TAB PO SCH ×2 (08:37→20:30)
[2018-07-01] MEDS: Polyethylene Glycol 3350 17 GM Packet PO SCH (08:38)
--- NOTE | 2018-07-01 14:29 | PRG ---
DATE OF SERVICE: 07/01/2018 SUBJECTIVE: The patient was seen this morning sitting up in bed with no signs of acute distress. She reported pain is well controlled and she slept well overnight. She completed her breakfast. She has not been out of bed with physical and occupational therapy. She is postop day 1 after surgical intervention for her right intertrochanteric femur fracture and splinting to her right radius fracture. The patient is receiving 1 unit of packed red blood cells today for hemoglobin of 6.4. It is unclear if the bleeding is just oozing from postop or if there is some kind of GI process going on. The patient denies any blood in her stool or melena at this time. She also denies nausea, vomiting or diarrhea. OBJECTIVE: VITAL SIGNS: Temperature 97.9, respirations 16, oxygen 96% on room air, blood pressure 107/65, and pulse 85. GENERAL: Well-appearing elderly female, sitting up in bed with no signs of acute distress. RESPIRATORY: Equal chest rise and fall. Clear breath sounds bilaterally. No signs of acute respiratory distress. CARDIAC: Regular rate and rhythm. No murmurs, gallops or rubs. GI: Abdomen is soft, nontender, and nondistended. EXTREMITIES: 2+ pulses in all extremities. No significant swelling noted. Gross motor and sensation intact in all extremities. NEUROLOGIC: GCS is 14, -1 for verbal. This is the patient's baseline however, and she does follow commands appropriately. LABORATORY FINDINGS: White count 14.2, hemoglobin 6.4, hematocrit 18.9, and platelets 277. Sodium 136, potassium 4.2, chloride 108, carbon dioxide 24, BUN 16, creatinine 0.59, phos 4.1, and magnesium 2.2. DIAGNOSTIC FINDINGS: There are no new diagnostic findings to report. ASSESSMENT: 1. Status post mechanical fall from standing. 2. Right intertrochanteric femur fracture, status post repair. 3. Right radius fracture, status post splinting. 4. Acute blood loss anemia. 5. History of prolapsed bladder, right bundle-branch block, transient ischemic attacks, hypertension, squamous cell carcinoma of the rectum, macular degeneration, frequent urinary tract infections, and urinary retention. PLAN: The patient will receive 1 unit of packed red blood cells for anemia with a hemoglobin of 6.4. Afterwards, she will work with Physical and Occupational Therapy. She is pending acute rehab. Nursing aware to assess bowel movements for blood and melena. Discontinue Rincon today. She is straight cathed t.i.d. at home. We will start that at this time. We will also hold NSAIDs. We will continue to hold DVT prophylaxis as she is getting packed red blood cells today. We will reconsider starting the patient on Lovenox tomorrow. The patient was discussed with Dr. Haile this morning before rounds. Job ID: [id number]
[2018-07-02] MEDS: traMADol HCl 50 MG TAB PO SCH ×4 (00:12→17:52)
[2018-07-02] MEDS: Acetaminophen 500 MG TAB PO SCH ×4 (02:35→21:06)
[2018-07-02] MEDS: Morphine 2 MG/ML SYRINGE SLOW IVP PRN ×2 (02:35→11:05)
[2018-07-02] MEDS: traMADol HCl 50 MG TAB PO PRN ×3 (03:20→14:28)
[2018-07-02 06:52] LABS: #Eosinphils 0.1 thou/uL (0.0-0.7); #Lymphocytes 0.6 thou/uL (1.20-3.40); #Monocytes 0.8 thou/uL (0.11-0.59); #Neutrophils 16.8 thou/uL (1.40-6.50); %Eosinophils 0.4 % (0.0-10.0); %Lymphocytes 3.5 % (21.0-51.0); %Monocytes 4.5 % (0.0-10.0); %Neutrophils 91.6 % (42.0-75.0); Hemoglobin 7.6 g/dL (12.0-16.0); Mean Corpuscular Hemoglobin 32.3 pg (27.0-31.0); Mean Corpuscular Volume 97.7 fL (78.0-98.0); Mean Platelet Volume 6.6 fL (7.4-10.4); Platelet Count 262 thou/uL (130-400); RBC Distribution Width 14.1 % (11.5-14.5); Red Blood Cell (RBC) Count 2.36 mill/uL (4.20-5.40); White Blood Cell (WBC) Count 18.3 thou/uL (4.8-10.8)
[2018-07-02 07:19] LABS: Anion Gap 8 mmol/L (10-20); BUN (Urea Nitrogen) 11 mg/dL (9.8-20.1); Calc. Creatinine Clearance 63 mL/min (70-130); Calcium 8.3 mg/dL (7.8-10.44); Carbon Dioxide 25 mmol/L (23-31); Chloride 104 mmol/L (98-107); Estimated GFR-MDRD Greater than 90; Glucose 107 mg/dL (83-110); Magnesium 1.8 mg/dL (1.6-2.6); Phosphorus 2.5 mg/dL (2.3-4.7); Potassium 4.1 mmol/L (3.5-5.1); Sodium 133 mmol/L (136-145)
[2018-07-02] MEDS ORDERED: cloNIDine 0.1 MG TAB PO PRN (07:19)
[2018-07-02] MEDS ORDERED: Losartan 25 MG TAB PO SCH (09:00)
[2018-07-02] MEDS ORDERED: Amlodipine 5 MG TAB PO SCH (09:00)
[2018-07-02] MEDS: Aspirin 81 mg Enteric Coated Tablet PO SCH ×2 (09:20→21:07)
[2018-07-02] MEDS: Thyroid 60 MG TAB PO SCH (09:20)
[2018-07-02] MEDS: Senokot S 8.6-50 MG TAB PO SCH ×2 (09:21→21:06)
[2018-07-02] MEDS: Polyethylene Glycol 3350 17 GM Packet PO SCH (09:21)
[2018-07-02] MEDS: Famotidine 20 MG TAB PO SCH ×2 (09:22→21:07)
--- NOTE | 2018-07-02 09:31 | ULT ---
EXAM: US Abdomen Limited PROVIDED CLINICAL HISTORY: Decrease in hemoglobin. Evaluate for abdominal bleed. COMPARISON: None FINDINGS: Limited sonographic evaluation of the abdomen was performed with imaging obtained in 4 separate quadr ants as well as in the midline. There is a large amount of shadowing from bowel gas seen throughout the abdomen. No free fluid is seen on provided images. IMPRESSION: Limited examination, but no definite intraperitoneal free fluid is seen. There is limited evaluation due to shadowing from bowel gas.
--- NOTE | 2018-07-02 13:22 | PRG ---
DATE OF SERVICE: 07/02/2018 SUBJECTIVE: The patient was seen this morning lying in bed. Reported pain was moderately controlled, but reported sometimes significant pain while moving around. She did receive 1 unit of packed red blood cells yesterday for hemoglobin of 4.6. She had a 4 g hemoglobin drop previously. She did increment appropriately today. She has been tolerating regular diet. Rincon to be discontinued today. Has not had a bowel movement yet. She denies any bloody stools or melenic stools at home before accident. She denies nausea, vomiting, or diarrhea. OBJECTIVE: VITAL SIGNS: Temperature 97.7, pulse 62, respirations 12, oxygen saturation 92% on room air, blood pressure 112/64. GENERAL: Well-appearing elderly female, lying in bed with no signs of acute distress. RESPIRATORY: Equal chest rise and fall. Clear breath sounds bilaterally. No signs of acute respiratory distress. CARDIAC: Regular rate and rhythm. No murmurs, gallops, or rubs. GI: Abdomen is soft, nontender, nondistended. EXTREMITIES: 2+ pulses in all extremities. No significant swelling noted. Gross motor and sensation intact in all extremities. Right wrist with splint in place. Right lower extremity surgical dressing clean, dry, and intact with no signs of infection. NEUROLOGIC: GCS is 15. The patient moves all extremities spontaneously and to command. LABORATORY FINDINGS: White count 18.3, hemoglobin 7.2, hematocrit 23.0, platelets 262. Sodium 133, potassium 4.1, chloride 104, carbon dioxide 25, BUN 11, creatinine 0.48, glucose 107, phosphorus 2.5, magnesium 1.8. DIAGNOSTIC FINDINGS: Ultrasound of the abdomen completed this morning demonstrates limited examination, but no definite intraperitoneal free fluid is seen. There is limited evaluation due to shadowing from bowel gas. ASSESSMENT: 1. Status post mechanical fall from standing. 2. Right intertrochanteric femur fracture, status post repair. 3. Right radius fracture, status post splinting. 4. Acute blood loss anemia, improved. 5. History of prolapsed bladder. 6. Right bundle-branch block. 7. Transient ischemic attacks. 8. Hypertension. 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 10. Macular degeneration. 11. Frequent urinary tract infections. 12. Urinary retention. PLAN: The patient received 1 unit of packed red blood cells yesterday and incremented appropriately. It is unclear the exact source of the hemoglobin drop. Ultrasound of the abdomen and pelvis was completed today to examine for free fluid as there was no abdominal workup completed during her admission in the emergency department. Ultrasound was negative for fluid. The patient still has not had a bowel movement and blood loss could be due to GI source. We will continue to monitor. She continues to be hemodynamically stable. Home amlodipine and losartan started today with hold parameters as well as p.r.n. clonidine. Also started iron and vitamin C for anemia. We will start gabapentin and ibuprofen today for further pain management. Aspirin to start for chemo DVT prophylaxis. Continue to work with Physical and Occupational Therapy. The patient was seen and evaluated by Dr. Haile and myself this morning during rounds. Job ID: [id number]
[2018-07-02] MEDS: Ibuprofen 600 MG TAB PO SCH ×2 (14:27→21:08)
[2018-07-02] MEDS: Gabapentin 100 MG CAP PO SCH ×2 (14:28→21:06)
[2018-07-02] MEDS: Ascorbic Acid 500 mg Chewable Tablet PO SCH (17:51)
[2018-07-02] MEDS: Ferrous Sulfate 325 MG TAB PO SCH (17:52)
[2018-07-03] MEDS: traMADol HCl 50 MG TAB PO SCH ×4 (02:19→18:30)
[2018-07-03] MEDS: Acetaminophen 500 MG TAB PO SCH ×4 (05:19→22:23)
[2018-07-03 05:40] LABS: #Basophils 0.1 thou/uL (0.0-0.2); #Eosinphils 0.3 thou/uL (0.0-0.7); #Lymphocytes 1.7 thou/uL (1.20-3.40); #Monocytes 1.1 thou/uL (0.11-0.59); #Neutrophils 9.4 thou/uL (1.40-6.50); %Basophils 0.8 % (0.0-1.0); %Eosinophils 2.1 % (0.0-10.0); %Lymphocytes 13.5 % (21.0-51.0); %Monocytes 8.6 % (0.0-10.0); %Neutrophils 75.1 % (42.0-75.0); Hemoglobin 6.9 g/dL (12.0-16.0); Mean Corpuscular HGB CONC 32.5 g/dL (32.0-36.0); Mean Corpuscular Hemoglobin 32.5 pg (27.0-31.0); Mean Corpuscular Volume 99.7 fL (78.0-98.0); Mean Platelet Volume 6.9 fL (7.4-10.4); Platelet Count 296 thou/uL (130-400); Red Blood Cell (RBC) Count 2.11 mill/uL (4.20-5.40); White Blood Cell (WBC) Count 12.5 thou/uL (4.8-10.8)
[2018-07-03 06:17] LABS: Anion Gap 10 mmol/L (10-20); BUN (Urea Nitrogen) 16 mg/dL (9.8-20.1); Calc. Creatinine Clearance 57 mL/min (70-130); Calcium 8.8 mg/dL (7.8-10.44); Carbon Dioxide 26 mmol/L (23-31); Chloride 106 mmol/L (98-107); Estimated GFR-MDRD Greater than 90; Glucose 91 mg/dL (83-110); Magnesium 1.8 mg/dL (1.6-2.6); Phosphorus 3.1 mg/dL (2.3-4.7); Potassium 4.1 mmol/L (3.5-5.1); Sodium 138 mmol/L (136-145)
[2018-07-03] MEDS: Ibuprofen 600 MG TAB PO SCH ×3 (07:17→22:24)
[2018-07-03] MEDS ORDERED: PHOS-NAK 1 PKT PACK PO SCH (07:30)
[2018-07-03] MEDS ORDERED: Magnesium 2 GM/50 ML 2 GM in Premix Bag 1 BAG IVPB SCH (07:30)
[2018-07-03] MEDS: Losartan 25 MG TAB PO SCH (08:37)
[2018-07-03] MEDS: Ferrous Sulfate 325 MG TAB PO SCH ×2 (08:38→16:31)
[2018-07-03] MEDS: Gabapentin 100 MG CAP PO SCH ×3 (08:38→22:24)
[2018-07-03] MEDS: Thyroid 60 MG TAB PO SCH (08:38)
[2018-07-03] MEDS: Famotidine 20 MG TAB PO SCH ×2 (08:39→22:24)
[2018-07-03] MEDS: Amlodipine 5 MG TAB PO SCH (08:39)
[2018-07-03] MEDS: Senokot S 8.6-50 MG TAB PO SCH ×2 (08:39→22:23)
[2018-07-03] MEDS: Ascorbic Acid 500 mg Chewable Tablet PO SCH ×2 (08:40→16:31)
[2018-07-03] MEDS: Aspirin 81 mg Enteric Coated Tablet PO SCH ×2 (08:40→22:24)
[2018-07-03] MEDS: Polyethylene Glycol 3350 17 GM Packet PO SCH (08:40)
[2018-07-03 09:49] LABS: Reticulocyte Count 5.2 % (0.5-1.5)
[2018-07-03] MEDS ORDERED: Bisacodyl 10 MG SUPP PR SCH (10:15)
[2018-07-03 10:50] LABS: Hemoglobin 6.7 g/dL (12.0-16.0); Mean Corpuscular HGB CONC 33.3 g/dL (32.0-36.0); Mean Platelet Volume 6.7 fL (7.4-10.4); Platelet Count 320 thou/uL (130-400); RBC Distribution Width 14.1 % (11.5-14.5); Red Blood Cell (RBC) Count 2.03 mill/uL (4.20-5.40); White Blood Cell (WBC) Count 12.2 thou/uL (4.8-10.8)
--- NOTE | 2018-07-03 13:12 | PRG ---
DATE OF SERVICE: 07/03/2018 SUBJECTIVE: This is a pleasant 88-year-old female, seen this morning, awake and alert in bed. The patient reports her pain is well controlled. Her hemoglobin dropped again this morning to 6.9. However, the patient states she is feeling well. She has been tolerating her diet. She has not had a bowel movement yet. She denies any abdominal pain. The patient had an abdominal ultrasound yesterday, that was normal. She states she has been using her incentive spirometer at bedside. She denies any bloody or melenotic stools. OBJECTIVE: VITAL SIGNS: Temperature 98.5, pulse 97, respirations 16, O2 93 on room air, blood pressure 127/68. GENERAL: This is a well-appearing, elderly female, sitting up in bed with no signs of acute distress. RESPIRATORY: Clear breath sounds bilaterally. No signs of acute respiratory distress. Equal chest rise and fall. The patient speaks in complete sentences. CARDIAC: Regular rate and rhythm. No gallops or rubs. GI: Abdomen is soft, nontender, and nondistended. Positive bowel sounds. EXTREMITIES: 2+ pulses in bilateral upper and lower extremities. NEUROLOGIC: GCS 15. The patient moves all extremities spontaneously. LABORATORY DATA: White blood cell 12.5, hemoglobin 6.9, hematocrit 21.1, platelets 296, reticulocyte count 5.2, and immature reticulocyte fraction 0.496. Sodium 138, potassium 4.1, chloride 106, carbon dioxide 26, BUN 16, creatinine 0.53, phosphorus 2.1, and magnesium 1.8. DIAGNOSTIC FINDINGS: Abdomen ultrasound, 07/02/2018. Impression, no definite intraperitoneal free fluid is seen. ASSESSMENT: 1. Status post mechanical fall from standing. 2. Right intertrochanteric femur fracture, status post repair. 3. Right radial fracture, status post splinting. 4. Acute blood loss anemia. 5. History of prolapsed bladder. 6. Right bundle-branch block. 7. Transient ischemic attack. 8. Hypertension. 9. Squamous cell cancer of rectum. 10. Macular degeneration. 11. Frequent urinary tract infections. 12. Urinary retention. PLAN: The patient received 1 unit of packed red blood cells today. We will follow up on her hemoglobin. It is unclear the exact source of her hemoglobin drop. Ultrasound of the abdomen yesterday showed no free fluid in the abdomen. The patient has not had a bowel movement yet and we will continue to monitor. She is hemodynamically stable. The patient will continue to work with Physical and Occupational Therapy. The patient was seen and evaluated by Dr. Haile during morning rounds. The patient had no questions or concerns. Job ID: [id number] MTDD
[2018-07-04] MEDS: traMADol HCl 50 MG TAB PO SCH ×4 (00:11→18:18)
[2018-07-04] MEDS: Acetaminophen 500 MG TAB PO SCH ×4 (04:26→20:46)
[2018-07-04 05:52] LABS: Anion Gap 12 mmol/L (10-20); BUN (Urea Nitrogen) 11 mg/dL (9.8-20.1); Calc. Creatinine Clearance 72 mL/min (70-130); Calcium 8.9 mg/dL (7.8-10.44); Carbon Dioxide 25 mmol/L (23-31); Chloride 105 mmol/L (98-107); Estimated GFR-MDRD Greater than 90; Glucose 77 mg/dL (83-110); Magnesium 1.9 mg/dL (1.6-2.6); Phosphorus 2.9 mg/dL (2.3-4.7); Potassium 4.6 mmol/L (3.5-5.1); Sodium 137 mmol/L (136-145)
[2018-07-04] MEDS: Ibuprofen 600 MG TAB PO SCH ×2 (06:22→14:24)
[2018-07-04 08:07] LABS: #Basophils 0.1 thou/uL (0.0-0.2); #Eosinphils 0.4 thou/uL (0.0-0.7); #Lymphocytes 1.4 thou/uL (1.20-3.40); #Monocytes 0.7 thou/uL (0.11-0.59); #Neutrophils 10.9 thou/uL (1.40-6.50); %Basophils 0.4 % (0.0-1.0); %Eosinophils 3.2 % (0.0-10.0); %Lymphocytes 10.4 % (21.0-51.0); %Monocytes 5.4 % (0.0-10.0); %Neutrophils 80.6 % (42.0-75.0); Hemoglobin 8.1 g/dL (12.0-16.0); MDiff Complete? YES; Mean Corpuscular HGB CONC 32.9 g/dL (32.0-36.0); Mean Corpuscular Volume 97.2 fL (78.0-98.0); Mean Platelet Volume 7.1 fL (7.4-10.4); Platelet Count 375 thou/uL (130-400); Platelet Morphology Comment Appears Adequate; Polychromasia MODERATE = 3-4 cells (100X) (0-2/hpf); RBC Distribution Width 15.1 % (11.5-14.5); Red Blood Cell (RBC) Count 2.53 mill/uL (4.20-5.40); White Blood Cell (WBC) Count 13.5 thou/uL (4.8-10.8)
[2018-07-04] MEDS: Losartan 25 MG TAB PO SCH (08:51)
[2018-07-04] MEDS: Gabapentin 100 MG CAP PO SCH ×3 (08:52→20:45)
[2018-07-04] MEDS: Amlodipine 5 MG TAB PO SCH (08:52)
[2018-07-04] MEDS: Thyroid 60 MG TAB PO SCH (08:52)
[2018-07-04] MEDS: Ferrous Sulfate 325 MG TAB PO SCH ×2 (08:52→18:18)
[2018-07-04] MEDS: Aspirin 81 mg Enteric Coated Tablet PO SCH ×2 (08:52→20:45)
[2018-07-04] MEDS: Ascorbic Acid 500 mg Chewable Tablet PO SCH ×2 (08:52→18:18)
[2018-07-04] MEDS: Famotidine 20 MG TAB PO SCH ×2 (08:52→20:45)
[2018-07-04] MEDS: Senokot S 8.6-50 MG TAB PO SCH ×2 (08:53→20:45)
[2018-07-04] MEDS: Polyethylene Glycol 3350 17 GM Packet PO SCH (08:53)
--- NOTE | 2018-07-04 17:38 | PRG ---
DATE OF SERVICE: 07/04/2018 SUBJECTIVE: This is an 88-year-old lady seen this morning, awake, alert and lying in bed. She reports that her pain is well controlled at this time. She voices no complaints. The patient says that she has not gotten up in the last couple of days as she has had a drop in her hemoglobin and has not been able to get up and ambulate as much. The patient continues to use her incentive spirometer. The patient denies any abdominal pain or vomiting. The patient still has not had a bowel movement and received a suppository yesterday. OBJECTIVE: VITAL SIGNS: Temperature 98.5, pulse 90, respirations 16, SpO2 of 95% on room air, blood pressure 145/74. GENERAL: The patient is awake, alert, an in no distress. RESPIRATORY: Clear bilateral, no respiratory distress, equal chest rise and fall. The patient speaks in full sentences. CARDIAC: Regular rate and rhythm. GI: Abdomen is soft, nontender, nondistended. EXTREMITIES: 2+ pulses bilateral. Moves all extremities. Normal sensation. NEUROLOGIC: GCS 15. No focal deficits. LABORATORY DATA: WBC 13.5, RBC 2.53, hemoglobin 8.1, hematocrit 24.6, platelets 375. Sodium 137, potassium 4.6, chloride 105, CO2 of 25, BUN 11, creatinine 0.42, estimated GFR greater than 90, glucose 77, calcium 8.9, phosphorus 2.9, magnesium 1.9. DIAGNOSTICS: There are no diagnostics to review today. ASSESSMENT: 1. Status post mechanical fall from standing. 2. Right intertrochanteric femur fracture status post repair. The patient is postop day 4, right intermedullary nail. 3. Right radial fracture status post splinting. 4. Acute blood loss anemia. 5. History of prolapsed bladder. 6. Right bundle branch block. 7. History of transient ischemic attack. 8. History of hypertension. 9. History of squamous cell cancer of the rectum. 10. Frequent urinary tract infections. 11. Urinary retention, resolved. PLAN: 1. We will continue supportive care. The patient is pending placement for rehab detention facility. Currently the [facility] has refused acceptance due to the patient receiving holistic cancer treatment with IV vitamins and minerals. 2. Case management working to find another location versus the patient going home with home health and physical therapy. 3. We will repeat H and H tomorrow. 4. We will continue comfort measures and pain regimen. We will encourage physical and occupational therapy. We will increase the patient's bowel regimen as she has had a bowel movement today. The patient agrees with the plan. Job ID: [id number]
[2018-07-05] MEDS: traMADol HCl 50 MG TAB PO SCH ×3 (00:13→12:42)
[2018-07-05] MEDS: Ibuprofen 600 MG TAB PO SCH ×2 (00:14→06:40)
[2018-07-05] MEDS: Acetaminophen 500 MG TAB PO SCH ×2 (05:59→08:31)
[2018-07-05] MEDS: Famotidine 20 MG TAB PO SCH (08:29)
[2018-07-05] MEDS: Losartan 25 MG TAB PO SCH (08:30)
[2018-07-05] MEDS: Thyroid 60 MG TAB PO SCH (08:30)
[2018-07-05] MEDS: Gabapentin 100 MG CAP PO SCH (08:30)
[2018-07-05] MEDS: Ascorbic Acid 500 mg Chewable Tablet PO SCH (08:30)
[2018-07-05] MEDS: Amlodipine 5 MG TAB PO SCH (08:30)
[2018-07-05] MEDS: Aspirin 81 mg Enteric Coated Tablet PO SCH (08:30)
[2018-07-05] MEDS: Senokot S 8.6-50 MG TAB PO SCH (08:31)
[2018-07-05] MEDS: Ferrous Sulfate 325 MG TAB PO SCH (08:31)
[2018-07-05] MEDS: Polyethylene Glycol 3350 17 GM Packet PO SCH (08:34)
[2018-07-05 12:04] VITALS: BP 95/59; TEMP 98.1
--- NOTE | 2018-07-05 15:39 | EKG ---
Test Reason : Blood Pressure : / mmHG Vent. Rate : 100 BPM Atrial Rate : 100 BPM P-R Int : 178 ms QRS Dur : 114 ms QT Int : 358 ms P-R-T Axes : 078 -30 113 degrees QTc Int : 461 ms Normal sinus rhythm Left axis deviation Anteroseptal infarct , age undetermined Abnormal ECG Confirmed by MODE GARCIA M.D. ([id number]), communications editor BRIAN WARREN ([id number]) on 07/05/2018 3:38:36 PM Referred By: Confirmed By:MODE GARCIA M.D.
--- NOTE | 2018-07-06 04:07 | DIS ---
DATE OF ADMISSION: 06/30/2018 DATE OF DISCHARGE: 07/05/2018 CONSULTS: Dr. Monreal. PROCEDURES: 1. A 12-lead EKG with no acute findings, no ST elevation or T-wave inversion. 2. Chest x-ray. Impression; hyperinflation, hiatal hernia, atherosclerosis. 3. Right hip x-ray. Impression; possible pathologic fracture involving the right intertrochanteric region. 4. Right wrist x-ray. Impression; distal radius fracture, distal bone demineralization. 5. On 06/30/2018, right intramedullary nailing of the intertrochanteric/subtrochanteric femur fracture. Distal radius closed reduction and short-arm casting. 6. On 07/02/2018, Abdominal ultrasound, decrease in hemoglobin to evaluate for a possible abdominal bleed. Impression; there is limited evaluation due to bowel gas, no definite intraperitoneal free fluid is seen. PRIMARY DIAGNOSES: Right intertrochanteric hip fracture status post mechanical fall, right radial fracture. SECONDARY DIAGNOSES: 1. History of squamous cell anus cancer and macrocytic anemia. 2. Acute blood loss anemia, resolved. DISCHARGE MEDICATIONS: 1. Acetaminophen 1000 mg every 6 hours. 2. Vitamin C 500 mg twice a day with meals. 3. Aspirin 81 mg twice a day for 30 days until followup with Orthopedics. 4. Ferrous sulfate 325 mg oral twice a day with meals. 5. Gabapentin 100 mg oral three times a day as needed. 6. Motrin 600 mg q.8 hours. 7. Zofran ODT q.6 hours as needed for nausea. 8. MiraLAX as needed. 9. [place] Thyroid 60 mg p.o. daily. 10. Losartan potassium 100 mg oral daily. 11. Clonidine 0.1 mg every 6 hours as needed for blood pressure greater than 170. 12. Norvasc 5 mg oral daily. There are no discontinued medications. HISTORY OF PRESENT ILLNESS AND HOSPITAL COURSE: This is an 88-year-old female, who presented to the emergency room via ground EMS with a mechanical fall. The patient reports she lives at [facility], where she tripped and fell as she was getting ready to go to bed. The patient denied any loss of consciousness or hitting her head. The patient denied any chest pain, shortness of breath, or dizziness prior to falling. The patient is currently under holistic cancer treatment for cancer of the anus, squamous cell. The patient is getting weekly intravenous vitamins and minerals. The patient was recommended chemo and radiation, but her son recommended holistic treatment at this time. The patient also has been seen Urology for chronic UTIs and is on prophylactic treatments, and the patient also cast herself 3 times a day. Postop, the patient did have a drop in hemoglobin and hematocrit and received 1 unit of packed red blood cells. Initially, the patient was denied placement to the [facility] due to the holistic intravenous treatment. The patient and son then chose to stop the IV holistic treatments, so the patient could go to the [facility] for further rehab. The patient progressed with physical therapy. On the day of discharge, the patient's vital signs were stable. The patient with an unremarkable exam including cardiopulmonary and GI exam. The patient's hemoglobin and hematocrit were stable on the day of discharge. The patient was started on iron and vitamin C. The plan for discharge was discussed with the attending physician, the patient, and family, who all agreed. The patient was deemed stable for discharge to the [facility] for continued occupational and physical therapy. Rincon catheter was left in due to the patient being right-hand dominant and currently in a splint and unable to self cath herself 3times a day. DISPOSITION: Stable. DISCHARGE INSTRUCTIONS: 1. Location: [facility]. 2. Diet: Regular diet. 3. Activity: Weightbearing as tolerated to right lower extremity. Nonweightbearing to right upper extremity, wrist only, can bear weight to right elbow. 4. Followup: Follow up with Dr. Monreal as instructed. This is just a summary of the hospital course. Job ID: [id number] MTDD
== END 2018-07-05 15:27 | DRG 481 ==
LOC: ERS 22:23 → SURG A 06-30 00:23
PROVIDERS: ADMIT Surgery; ATTEND Surgery
PROC: 0QS636Z Reposition Right Upper Femur with Intramedullary Internal Fixation Device, Percutaneous Approach (ICD-10-PCS; principal; 2018-06-30)
PROC: 0PSHXZZ Reposition Right Radius, External Approach (ICD-10-PCS; 2018-06-30)
PROC: 30233N1 Transfusion of Nonautologous Red Blood Cells into Peripheral Vein, Percutaneous Approach (ICD-10-PCS; 2018-07-03)
DX: S72.141A Displaced intertrochanteric fracture of right femur, initial encounter for closed fracture (principal); S52.501A Unspecified fracture of the lower end of right radius, initial encounter for closed fracture; D62 Acute posthemorrhagic anemia; N39.0 Urinary tract infection, site not specified; I10 Essential (primary) hypertension; H35.30 Unspecified macular degeneration; W01.0XXA Fall on same level from slipping, tripping and stumbling without subsequent striking against object, initial encounter; M85.80 Other specified disorders of bone density and structure, unspecified site; I45.10 Unspecified right bundle-branch block; Z85.048 Personal history of other malignant neoplasm of rectum, rectosigmoid junction, and anus; Z86.73 Personal history of transient ischemic attack (TIA), and cerebral infarction without residual deficits; Z90.710 Acquired absence of both cervix and uterus; Z90.49 Acquired absence of other specified parts of digestive tract; Z91.040 Latex allergy status; Z88.5 Allergy status to narcotic agent
CPT/HCPCS: 29125; 36415; 36430; 71045; 76000; 76705; 80048; 80053; 81003; 83735; 84100; 85025; 85046; 85610; 85730; 86850; 86900; 86901; 93005; 96374; 96375; C1713; C1769; G0390; J0131; J0690; J1885; J2001; J2270; J2405; J2550; J2704; J3010; J3475; J3490; P9016; S0028

== ENCOUNTER 2018-10-21 07:06 | Inpatient (IN) | payer MEDICARE, OTHER ==
[2018-10-21 08:03] LABS: Hemoglobin 7.3 g/dL (12.0-16.0); Mean Corpuscular HGB CONC 31.9 g/dL (32.0-36.0); Mean Corpuscular Hemoglobin 32.9 pg (27.0-31.0); Platelet Count 388 thou/uL (130-400); Red Blood Cell (RBC) Count 2.23 mill/uL (4.20-5.40); White Blood Cell (WBC) Count 27.6 thou/uL (4.8-10.8)
[2018-10-21 08:05] LABS: ALT (SGPT) 15 U/L (8-55); AST (SGOT) 24 U/L (5-34); Alkaline Phosphatase 92 U/L (40-150); Anion Gap 9 mmol/L (10-20); BUN (Urea Nitrogen) 15 mg/dL (9.8-20.1); Bilirubin, Total 0.6 mg/dL (0.2-1.2); Calc. Creatinine Clearance 0 mL/min (70-130); Calcium 9.1 mg/dL (7.8-10.44); Carbon Dioxide 27 mmol/L (23-31); Chloride 101 mmol/L (98-107); Estimated GFR-MDRD Greater than 90; Globulin 2.3 g/dL (2.4-3.5); Glucose 113 mg/dL (83-110); Lipase 4 U/L (8-78); Potassium 3.8 mmol/L (3.5-5.1); Protein, Total 5.3 g/dL (6.0-8.3); Sodium 133 mmol/L (136-145)
--- NOTE | 2018-10-21 08:10 | RAD ---
RADIOGRAPH CHEST 1 VIEW: DATE: 10/21/2018 TIME: 7:44 AM HISTORY: 88-year-old female with fever and tachycardia COMPARISON: 07/10/2018 FINDINGS: Increased transverse diameter of cardiac shadow. No pulmonary edema or pneumothorax. Mild haziness at right lung base. Indistinctness of right lateral costophrenic angle. These appear to be new since prior study. IMPRESSION: Right lobe basilar airspace opacity. Uncertain whether this is atelectasis or early pneumonia.
[2018-10-21] MEDS ORDERED: cefTRIAXone\\ROCEPHIN 2 GM VIAL ONE (08:15)
[2018-10-21 08:24] LABS: Bilirubin Negative (Negative); Blood, Urine Small (Negative); Glucose, Urine (Dipstick) Negative (Negative); Leukocyte Small (Negative); Nitrite Negative (Negative); Protein, Urine (Dipstick) 100 mg/dL (Neg-Trace); Urobilinogen 0.2 mg/dL (Less than 2)
[2018-10-21 08:24] LABS: Band 10 % (5-11); Lymphocytes 3 % (21-51); MDiff Complete? YES; Macrocytosis SLIGHT = 6-15 cells (100X) (0-5/hpf); Neutrophil 87 % (42-75); Platelet Morphology Comment Appears Adequate; Polychromasia MODERATE = 3-4 cells (100X) (0-2/hpf)
[2018-10-21 08:32] LABS: Clarity Turbid (Clear)
[2018-10-21 08:33] LABS: RBC/HPF 0-3 HPF (0-3); WBC/HPF 21-50 HPF (0-3)
[2018-10-21 08:34] LABS: Bacteria/HPF 4+ HPF (None Seen); Squamous Epithelial 0-3 HPF (0-3)
[2018-10-21] MEDS ORDERED: Azithromycin 500 MG VIAL ONE (08:52)
[2018-10-21 08:55] LABS: INR-International Normal Ratio 1.3; Prothrombin Time 16.2 SEC (12.0-14.7)
[2018-10-21 08:56] LABS: PTT 31.6 SEC (22.9-36.1)
[2018-10-21] MEDS ORDERED: Bisacodyl 5 MG TAB PO PRN (13:43)
[2018-10-21] MEDS ORDERED: Ondansetron PF 4 MG/2 ML Vial IVP PRN (13:43)
[2018-10-21] MEDS ORDERED: Senokot S 8.6-50 MG TAB PO PRN (13:43)
[2018-10-21] MEDS ORDERED: Ondansetron ODT 4 MG TAB PO PRN (13:43)
[2018-10-21] MEDS ORDERED: Zolpidem Tartrate 5 MG TAB PO PRN (13:43)
--- NOTE | 2018-10-21 15:08 | HP ---
ADMISSION DIAGNOSES: 1. Pneumonia. 2. Leukocytosis. 3. Hypertension. CHIEF COMPLAINT: Fever x3 days, feeling off. HISTORY OF PRESENTING ILLNESS: This is an 88-year-old female with a history of rectal cancer. The patient has decided not to treat her rectal cancer that is slow-growing in nature. The patient for the past 3 days has been having fever with no improvement in her symptoms and feeling awful. No complaints of any chills. No complaints of any headache. No complaints of nausea or vomiting. The patient is complaining of loss of appetite, change of taste, and inability to eat. PAST MEDICAL HISTORY: Significant for hypertension and rectal cancer for which she is not undergoing any treatment. PAST SURGICAL HISTORY: Significant for appendectomy, renal surgeries for renal stones, surgeries for uterine fibroids, right lower extremity fracture repair. ALLERGIES: THE PATIENT IS ALLERGIC TO LATEX, CODEINE, CIPROFLOXACIN, AND MEPERIDINE. REVIEW OF SYSTEMS: CONSTITUTIONAL: As above. HEENT: Negative for eye review of systems. Denies any eye pain or vision changes. Denies any ears, nose, throat pain or discharge. Denies any sore throat. Denies any voice change. CARDIOVASCULAR: Negative for any chest pain or palpitation. RESPIRATORY: Negative for any shortness of breath. Positive for cough. Denies any sputum or wheezing. GASTROINTESTINAL SYSTEM: Negative for any abdominal pain, nausea, vomiting, or diarrhea. GENITOURINARY: Complaining of dysuria, but denies any frequency or vaginal bleeding. MUSCULOSKELETAL: Negative for any back pain, falls, or injury. NEUROLOGIC: Negative for any headaches or mental status changes, paralysis or paraesthesias. CURRENT MEDICATIONS: 1. Losartan 100 mg one tablet once a day. 2. [place] Thyroid 60 mg once a day. 3. Clonidine 0.1 mg/24-hour patch transdermally q. weekly. 4. Vitamin C 500 mg p.o. b.i.d. PHYSICAL EXAMINATION: VITAL SIGNS: Admission vital signs; blood pressure is 123/87, pulse 100, respiratory rate 18, temperature is 100.8. CONSTITUTIONAL: Vital signs reviewed. The patient is tachycardic and febrile. She appears nontoxic and not in any pain. HEENT: Normocephalic and atraumatic head. Eyelids and conjunctivae are normal on inspection. Pupils are equally round and reactive to light. Extraocular muscles are intact. No nystagmus. ENT examination; ear examinations are within normal limits. External ear and tympanic membranes are within normal limits. Pharynx and uvula is within normal limits. Tonsil is within normal limits. CARDIOVASCULAR: Assessment is within normal limits. Regular rate and rhythm. No murmurs and no rubs. RESPIRATORY: CTA. Bilateral symmetric movement of the lungs. No wheezes. No rales. ABDOMEN: Soft, nontender, and nondistended. Plus for bowel sounds. MUSCULOSKELETAL: No pain with ROM. No swelling noted. NEUROLOGIC: Examination is within normal limits. Speech is normal. Cranial nerves are intact. No focal deficits are noted. SKIN: Examination is within normal limits. Skin is warm, dry, and normal in color. PSYCHIATRIC: Examination is within normal limits. Normal affect. RADIOLOGICAL INTERPRETATION: Chest x-ray shows right lower lobe infiltrates/atelectasis. LABORATORY DATA: WBC is at 24,000 and UA is abnormal with 4+ of wbc's. ASSESSMENT AND PLAN: 1. Fever with leukocytosis. Chest x-ray with possible pneumonia/atelectasis. Abnormal urinalysis. Admit the patient for IV antibiotics. Follow up on the WBCs. Follow up on the blood and urine cultures. Continue with the empiric Rocephin and azithromycin for now. 2. Hypertension. Continue home medications. Job ID: [id number]
[2018-10-21] MEDS: Acetaminophen 325 MG TAB PO PRN (16:48)
[2018-10-21 17:29] VITALS: BMI 22.2
[2018-10-22 05:49] LABS: #Lymphocytes 0.5 thou/uL (1.20-3.40); #Monocytes 1.1 thou/uL (0.11-0.59); #Neutrophils 19.2 thou/uL (1.40-6.50); %Eosinophils 0.1 % (0.0-10.0); %Lymphocytes 2.6 % (21.0-51.0); %Monocytes 5.2 % (0.0-10.0); %Neutrophils 92.2 % (42.0-75.0); Hemoglobin 7.6 g/dL (12.0-16.0); Mean Corpuscular HGB CONC 31.5 g/dL (32.0-36.0); Mean Corpuscular Hemoglobin 33.2 pg (27.0-31.0); Mean Platelet Volume 6.4 fL (7.4-10.4); Platelet Count 395 thou/uL (130-400); Red Blood Cell (RBC) Count 2.29 mill/uL (4.20-5.40); White Blood Cell (WBC) Count 20.8 thou/uL (4.8-10.8)
[2018-10-22 06:03] LABS: Anion Gap 13 mmol/L (10-20); BUN (Urea Nitrogen) 15 mg/dL (9.8-20.1); Calc. Creatinine Clearance 62 mL/min (70-130); Calcium 8.8 mg/dL (7.8-10.44); Carbon Dioxide 24 mmol/L (23-31); Chloride 103 mmol/L (98-107); Estimated GFR-MDRD Greater than 90; Glucose 78 mg/dL (83-110); Potassium 4.1 mmol/L (3.5-5.1); Sodium 136 mmol/L (136-145)
[2018-10-22] MEDS: Acetaminophen 325 MG TAB PO PRN ×3 (06:03→21:29)
[2018-10-22] MEDS: cefTRIAXone\\ROCEPHIN 2 GM in Sodium Chloride 0.9% 100 ML IVPB SCH (07:59)
[2018-10-22] MEDS ORDERED: Azithromycin 500 MG in Sodium Chloride 0.9% 250 ML 250 ML IVPB SCH (09:00)
--- NOTE | 2018-10-22 10:12 | PDOC.HOSPP ---
- Subjective Encounter Date: 10/22/18 Encounter Time: 10:10 Subjective: Patient states "I feel a little stronger." No nausea, appetite generally poor. No CP/SOB. General fatigue and weakness a bit better. No focal area of pain , with the exception of IV on left arm due to banding that's "a little tight" - Objective Vital Signs & Weight: Vital Signs (12 hours) Temp Pulse Resp BP Pulse Ox 10/22/18 08:00 94 L 10/22/18 07:42 99.3 F 87 18 128/64 94 L 10/22/18 04:42 100.6 F H 77 17 156/68 H 93 L 10/22/18 00:00 97.6 F 75 17 132/71 94 L Weight Weight 113 lb 5 oz I&O: 10/21/18 10/22/18 10/23/18 06:59 06:59 06:59 Intake Total 720 240 Output Total 3 Balance 717 240 Result Diagrams: 10/22/18 04:54 10/22/18 04:54 Hospitalist ROS - Medication Medications: Active Medications Generic Name Dose Route Start Last Admin Trade Name Freq PRN Reason Stop Dose Admin Acetaminophen 650 mg 10/21/18 13:43 10/22/18 06:03 Tylenol PO 650 mg Q4H PRN Administration Headache/Fever/Mild Pain (1-3) Ceftriaxone Sodium 2 gm/ 100 mls @ 200 mls/hr 10/22/18 08:00 10/22/18 07:59 Sodium Chloride IVPB 100 mls 0800 GAMAL Administration Sodium Chloride 10 ml 10/21/18 21:00 10/22/18 08:00 Flush - Normal Saline IVF 10 ml Q12HR GAMAL Administration - Exam General Appearance: NAD Eye: PERRL ENT: normocephalic atraumatic, moist mucosa Neck: supple, no JVD Heart: RRR, murmur present Heart - other findings: soft systolic RUSB Respiratory: CTAB Gastrointestinal: soft, non-tender, non-distended, normal bowel sounds, no palpable masses, no hepatomegaly, no splenomegaly, no bruit Extremities: no clubbing, no edema Skin: no rashes Neurological: CN's grossly intact, no focal deficits, no new deficit Psychiatric: normal affect, normal behavior, A&O x 3 Hosp A/P (1) Sepsis due to gram-negative urinary tract infection Code(s): A41.50 - GRAM-NEGATIVE SEPSIS, UNSPECIFIED; N39.0 - URINARY TRACT INFECTION, SITE NOT SPECIFIED Status: Acute (2) Macrocytic anemia Code(s): D53.9 - NUTRITIONAL ANEMIA, UNSPECIFIED Status: Acute (3) Rectal cancer Code(s): C20 - MALIGNANT NEOPLASM OF RECTUM Status: Acute (4) Generalized weakness Code(s): R53.1 - WEAKNESS Status: Chronic (5) Hypertension Code(s): I10 - ESSENTIAL (PRIMARY) HYPERTENSION Status: Chronic Qualifiers: Hypertension type: essential hypertension Qualified Code(s): I10 - Essential (primary) hypertension (6) Hypothyroidism Code(s): E03.9 - HYPOTHYROIDISM, UNSPECIFIED Status: Chronic - Plan continue antibiotics, PT/OT, social science professor, DVT proph w/lovenox ID - Sepsis with elevated WBC, fever, suspected source, 2/2 GNR blood cultures, abnormal UA. Stop Azithromycin. Continue Rocephin, adjust based on cultures. Follow AM lab. Endo - restart home thyroid medication Cards - restart home BP meds with hold parameters Spiritual care consult PT/OT (patient states she was at [facility] before discharge, request CM to review) Add lovenox High risk: elderly/comorbidities
[2018-10-22] MEDS: Senokot S 8.6-50 MG TAB PO SCH (21:07)
[2018-10-23] MEDS: Acetaminophen 325 MG TAB PO PRN ×3 (03:59→17:13)
[2018-10-23 06:03] LABS: #Eosinphils 0.3 thou/uL (0.0-0.7); #Lymphocytes 0.7 thou/uL (1.20-3.40); #Monocytes 0.8 thou/uL (0.11-0.59); %Eosinophils 2.3 % (0.0-10.0); %Lymphocytes 6.3 % (21.0-51.0); %Monocytes 6.9 % (0.0-10.0); %Neutrophils 84.5 % (42.0-75.0); Hemoglobin 7.9 g/dL (12.0-16.0); Mean Corpuscular HGB CONC 31.2 g/dL (32.0-36.0); Mean Corpuscular Hemoglobin 32.8 pg (27.0-31.0); Mean Platelet Volume 6.5 fL (7.4-10.4); Platelet Count 387 thou/uL (130-400); RBC Distribution Width 12.2 % (11.5-14.5); Red Blood Cell (RBC) Count 2.42 mill/uL (4.20-5.40); White Blood Cell (WBC) Count 11.8 thou/uL (4.8-10.8)
[2018-10-23 06:25] LABS: Anion Gap 10 mmol/L (10-20); BUN (Urea Nitrogen) 11 mg/dL (9.8-20.1); Calc. Creatinine Clearance 64 mL/min (70-130); Calcium 8.9 mg/dL (7.8-10.44); Carbon Dioxide 27 mmol/L (23-31); Chloride 104 mmol/L (98-107); Estimated GFR-MDRD Greater than 90; Glucose 80 mg/dL (83-110); Potassium 3.7 mmol/L (3.5-5.1); Sodium 137 mmol/L (136-145)
[2018-10-23] MEDS: Losartan 25 MG TAB PO SCH (07:55)
[2018-10-23] MEDS: cefTRIAXone\\ROCEPHIN 2 GM in Sodium Chloride 0.9% 100 ML IVPB SCH (07:56)
[2018-10-23] MEDS: Amlodipine 5 MG TAB PO SCH (07:56)
[2018-10-23] MEDS: Senokot S 8.6-50 MG TAB PO SCH ×2 (07:56→20:18)
[2018-10-23] MEDS: Enoxaparin Sodium 30 MG/0.3 ML SYRINGE SC SCH (07:57)
[2018-10-23] MEDS: Polyethylene Glycol 3350 17 GM Packet PO SCH (07:58)
[2018-10-23] MEDS: Thyroid 60 MG TAB PO SCH (10:04)
--- NOTE | 2018-10-23 17:32 | PDOC.HOSPP ---
- Subjective Encounter Date: 10/23/18 Encounter Time: 12:20 Subjective: Feeling better, starting to eat. She mentioned that in the past she saw Dr. Spaulding, and received prophylactic abx for recurrent UTIs. Recalls being on cipro in the past, had some nausea, but then tolerated a lower dose. - Objective Vital Signs & Weight: Vital Signs (12 hours) Temp Pulse Resp BP Pulse Ox 10/23/18 08:00 94 L 10/23/18 07:56 84 10/23/18 07:43 98.6 F 84 16 133/73 94 L Weight Admit Weight 113 lb 5 oz Weight 113 lb 5 oz I&O: 10/22/18 10/23/18 10/24/18 06:59 06:59 06:59 Intake Total 720 720 480 Output Total 3 Balance 717 720 480 Result Diagrams: 10/23/18 04:40 10/23/18 04:40 Hospitalist ROS - Medication Medications: Active Medications Generic Name Dose Route Start Last Admin Trade Name Freq PRN Reason Stop Dose Admin Acetaminophen 650 mg 10/21/18 13:43 10/23/18 17:13 Tylenol PO 650 mg Q4H PRN Administration Headache/Fever/Mild Pain (1-3) Amlodipine Besylate 5 mg 10/23/18 09:00 10/23/18 07:56 Norvasc PO 5 mg DAILY GAMAL Administration Enoxaparin Sodium 30 mg 10/23/18 09:00 10/23/18 07:57 Lovenox SC 30 mg 0900 GAMAL Administration Ceftriaxone Sodium 2 gm/ 100 mls @ 200 mls/hr 10/22/18 08:00 10/23/18 07:56 Sodium Chloride IVPB 100 mls 0800 GAMAL Administration Losartan Potassium 100 mg 10/23/18 09:00 10/23/18 07:55 Cozaar PO 100 mg DAILY GAMAL Administration Polyethylene Glycol 17 gm 10/23/18 09:00 10/23/18 07:58 Miralax PO 17 gm DAILY GAMAL Administration Senna/Docusate Sodium 2 tab 10/22/18 21:00 10/23/18 07:56 Senokot S PO 2 tab BID GAMAL Administration Sodium Chloride 10 ml 10/21/18 21:00 10/23/18 07:57 Flush - Normal Saline IVF 10 ml Q12HR GAMAL Administration Thyroid 60 mg 10/23/18 09:00 10/23/18 10:04 [place] Thyroid PO 60 mg DAILY GAMAL Administration - Exam General Appearance: NAD Eye: PERRL ENT: normocephalic atraumatic Neck: supple, no JVD Heart: RRR Respiratory: CTAB Gastrointestinal: soft, non-tender Extremities: no edema Skin: no rashes Neurological: no new deficit Psychiatric: A&O x 3 Hosp A/P (1) Sepsis due to gram-negative urinary tract infection Code(s): A41.50 - GRAM-NEGATIVE SEPSIS, UNSPECIFIED; N39.0 - URINARY TRACT INFECTION, SITE NOT SPECIFIED Status: Acute (2) Macrocytic anemia Code(s): D53.9 - NUTRITIONAL ANEMIA, UNSPECIFIED Status: Acute (3) Rectal cancer Code(s): C20 - MALIGNANT NEOPLASM OF RECTUM Status: Acute (4) Generalized weakness Code(s): R53.1 - WEAKNESS Status: Chronic (5) Hypertension Code(s): I10 - ESSENTIAL (PRIMARY) HYPERTENSION Status: Chronic Qualifiers: Hypertension type: essential hypertension Qualified Code(s): I10 - Essential (primary) hypertension (6) Hypothyroidism Code(s): E03.9 - HYPOTHYROIDISM, UNSPECIFIED Status: Chronic - Plan ID - Sepsis with elevated WBC, fever, suspected source, 2/2 GNR blood cultures, E coli. Continue Rocephin. Follow AM lab. Check post void residuals. Previously on maintence prophylactic abx with Dr. Spaulding. May need tid intermittant self cath and outpt urology f/u based on repeat UTI. Check surveillance blood cultures tomorrow morning. 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 Colonization a concern with bacteremia. Endo - Continue home thyroid medication Cards - Continue home BP meds with hold parameters Spiritual care consult in progress - patient less than a year ago PT/OT DVT proph - lovenox High risk: elderly/comorbidities Return to [facility] perhaps 10/25?
[2018-10-24] MEDS: Senokot S 8.6-50 MG TAB PO SCH ×2 (08:12→20:00)
[2018-10-24] MEDS: Polyethylene Glycol 3350 17 GM Packet PO SCH (08:12)
[2018-10-24] MEDS: Losartan 25 MG TAB PO SCH (08:13)
[2018-10-24] MEDS: cefTRIAXone\\ROCEPHIN 2 GM in Sodium Chloride 0.9% 100 ML IVPB SCH (08:16)
[2018-10-24] MEDS: Amlodipine 5 MG TAB PO SCH (08:16)
[2018-10-24] MEDS: Enoxaparin Sodium 30 MG/0.3 ML SYRINGE SC SCH (08:17)
[2018-10-24 08:24] LABS: Anion Gap 11 mmol/L (10-20); BUN (Urea Nitrogen) 6 mg/dL (9.8-20.1); Calc. Creatinine Clearance 71 mL/min (70-130); Calcium 8.8 mg/dL (7.8-10.44); Carbon Dioxide 28 mmol/L (23-31); Chloride 103 mmol/L (98-107); Estimated GFR-MDRD Greater than 90; Glucose 97 mg/dL (83-110); Potassium 3.7 mmol/L (3.5-5.1); Sodium 138 mmol/L (136-145)
[2018-10-24] MEDS: Thyroid 60 MG TAB PO SCH (09:20)
--- NOTE | 2018-10-24 13:00 | PQF ---
DATE: 10-24-18 ATTN: DR. CASSY MOHAN Please exercise your independent, professional judgment in responding to the clarification form. Clinical indicators are provided on the bottom of this form for your review Please check appropriate box(s) to clarify if the following diagnosis has been ruled in or ruled out: PNEUMONIA [ XX ] Ruled in diagnosis [ ] Continue to treat [ ] Resolved [ ] Ruled out diagnosis [ ] Other diagnosis [ ] Unable to determine In addition, please specify: Present on Admission (POA): [ ] Yes [ ] No [ ] Unable to determine For continuity of documentation, please document condition throughout progress notes and discharge summary. Thank You. CLINICAL INDICATORS - SIGNS / SYMPTOMS / LABS: ER DX 10-21-18: SEPSIS, FEVER, PNEUMONIA H&P 10-21-18: ADMISSION DX: PNEUMONIA, LEUKOCYTOSIS, HTN H&P 10-21-18: ASSESSMENT AND PLAN: FEVER WITH LEUKOCYTOSIS. CHEST X-RAY WITH POSSIBLE PNEUMONIA / ATELECTASIS RISK FACTORS: ER NOTES 10-21-18: PATIENT FROM [place], HX ANAL CANAL CANCER, HX PROLAPSE BLADDER, TEMP: [phone], HX TIA TREATMENTS: ER NOTES 10-21-18: AZITHROMYCIN, CEFTRIAXONE, NS IVF To support diagnosis (This form is maintained as a part of the permanent medical record) 2014 [employer]. All Rights Reserved ARIANNE [email or web address] Office: [phone] ELDA
--- NOTE | 2018-10-24 14:16 | PDOC.HOSPP ---
- Subjective Subjective: Seen and examined. Patient breathing well on room air. Denies pain. Feeling weak. Has been living at the [facility] for the past 3 months since her fall. Blood cultures repeating this AM to ensure sterilization of the blood. - Objective Vital Signs & Weight: Vital Signs (12 hours) Temp Pulse Resp BP BP BP Pulse Ox 10/24/18 11:40 99.3 F 85 16 139/64 94 L 10/24/18 08:16 86 157/75 H 10/24/18 08:12 98.3 F 92 16 157/75 H 92 L 10/24/18 03:33 93 L Weight Admit Weight 113 lb 5 oz Weight 113 lb 5 oz I&O: 10/23/18 10/24/18 10/25/18 06:59 06:59 06:59 Intake Total 720 720 Balance 720 720 Result Diagrams: 10/23/18 04:40 10/24/18 07:47 Radiology Reviewed by me: Yes (Chest xray, early PNA - will add 2 view chest) Hospitalist ROS - Review of Systems All other systems reviewed; all pertinent +/- noted in HPI/Subj - Medication Medications: Active Medications Generic Name Dose Route Start Last Admin Trade Name Freq PRN Reason Stop Dose Admin Acetaminophen 650 mg 10/21/18 13:43 10/23/18 17:13 Tylenol PO 650 mg Q4H PRN Administration Headache/Fever/Mild Pain (1-3) Amlodipine Besylate 5 mg 10/23/18 09:00 10/24/18 08:16 Norvasc PO 5 mg DAILY GAMAL Administration Enoxaparin Sodium 30 mg 10/23/18 09:00 10/24/18 08:17 Lovenox SC 30 mg 0900 GAMAL Administration Ceftriaxone Sodium 2 gm/ 100 mls @ 200 mls/hr 10/22/18 08:00 10/24/18 08:16 Sodium Chloride IVPB 100 mls 0800 GAMAL Administration Losartan Potassium 100 mg 10/23/18 09:00 10/24/18 08:13 Cozaar PO 100 mg DAILY GAMAL Administration Polyethylene Glycol 17 gm 10/23/18 09:00 10/24/18 08:12 Miralax PO Not Given DAILY GAMAL Senna/Docusate Sodium 2 tab 10/22/18 21:00 10/24/18 08:12 Senokot S PO Not Given BID GAMAL Sodium Chloride 10 ml 10/21/18 21:00 10/24/18 08:17 Flush - Normal Saline IVF 10 ml Q12HR GAMAL Administration Thyroid 60 mg 10/23/18 09:00 10/24/18 09:20 [place] Thyroid PO 60 mg DAILY GAMAL Administration - Exam General Appearance: NAD Eye: anicteric sclera Eye - other findings: EOMI ENT: no oropharyngeal lesions, moist mucosa Neck: supple, symmetric, no lymphadenopathy Heart: no murmur, no gallops, no rubs Heart - other findings: S1 and S2 present Respiratory: no wheezes, no rales, no ronchi, wheezes (few scattered) Gastrointestinal: soft, non-tender, non-distended, no guarding, no rigidity Extremities: no edema Skin: no lesions, no rashes Neurological: CN's grossly intact, no focal deficits Musculoskeletal: generalized weakness Psychiatric: normal affect, oriented to person, oriented to place Hosp A/P (1) Bacteremia Code(s): R78.81 - BACTEREMIA Status: Acute (2) Sepsis due to gram-negative urinary tract infection Code(s): A41.50 - GRAM-NEGATIVE SEPSIS, UNSPECIFIED; N39.0 - URINARY TRACT INFECTION, SITE NOT SPECIFIED Status: Acute (3) E. coli UTI Code(s): N39.0 - URINARY TRACT INFECTION, SITE NOT SPECIFIED; B96.20 - UNSP ESCHERICHIA COLI THE CAUSE OF DISEASES CLASSD ELSWHR Status: Acute (4) Generalized weakness Code(s): R53.1 - WEAKNESS Status: Chronic - Plan Plan: Med/ surg Bacteremia with e.coli Repeat blood cultures to ensure sterilization of the blood If unable to sterilize blood would need to eval for colonization site of the blood UTI also with e.coli Continue ceftiaxone, having a good response Normalizing WBC count Continue home meds as able PT/OT GI and DVT PPX
--- NOTE | 2018-10-24 15:15 | RAD ---
EXAM: XR Chest 1 View Portable PROVIDED CLINICAL HISTORY: Shortness of breath COMPARISON: 10/21/2018 FINDINGS: Evaluation is limited due to patient positioning. Cardiac and mediastinal silhouettes is unchanged in appearance. Vascular calcification involves the aortic arch. Bibasilar pleural-parenchymal opacities, appearing stable on the right and increased on the left. No evidence for pneumothorax. Cat heter material overlies the chest likely reflecting a central line. IMPRESSION: Bibasilar pleural-parenchymal opacity.
[2018-10-24] MEDS: Acetaminophen 325 MG TAB PO PRN (22:07)
[2018-10-25] MEDS: cefTRIAXone\\ROCEPHIN 2 GM in Sodium Chloride 0.9% 100 ML IVPB SCH (07:43)
[2018-10-25] MEDS: Thyroid 60 MG TAB PO SCH (07:46)
[2018-10-25] MEDS: Losartan 25 MG TAB PO SCH (07:46)
[2018-10-25] MEDS: Senokot S 8.6-50 MG TAB PO SCH ×2 (07:47→20:10)
[2018-10-25] MEDS: Enoxaparin Sodium 30 MG/0.3 ML SYRINGE SC SCH (07:47)
[2018-10-25] MEDS: Amlodipine 5 MG TAB PO SCH (07:47)
[2018-10-25] MEDS: Polyethylene Glycol 3350 17 GM Packet PO SCH (07:47)
[2018-10-25] MEDS: Acetaminophen 325 MG TAB PO PRN ×2 (10:23→20:42)
--- NOTE | 2018-10-25 13:37 | PDOC.HOSPP ---
- Subjective Subjective: Seen and examined. Feeling much better this AM per patient. Slept well. Breathing well on room air. Denies pain. Responding well to antibiotics. - Objective Vital Signs & Weight: Vital Signs (12 hours) Temp Pulse Resp BP Pulse Ox 10/25/18 08:00 97 10/25/18 07:51 98.2 F 86 18 158/75 H 97 10/25/18 07:47 72 Weight Admit Weight 113 lb 5 oz Weight 113 lb 5 oz I&O: 10/24/18 10/25/18 10/26/18 06:59 06:59 06:59 Intake Total 720 600 Balance 720 600 Result Diagrams: 10/23/18 04:40 10/24/18 07:47 Hospitalist ROS - Review of Systems All other systems reviewed; all pertinent +/- noted in HPI/Subj - Medication Medications: Active Medications Generic Name Dose Route Start Last Admin Trade Name Freq PRN Reason Stop Dose Admin Acetaminophen 650 mg 10/21/18 13:43 10/25/18 10:23 Tylenol PO 650 mg Q4H PRN Administration Headache/Fever/Mild Pain (1-3) Amlodipine Besylate 5 mg 10/23/18 09:00 10/25/18 07:47 Norvasc PO 5 mg DAILY GAMAL Administration Enoxaparin Sodium 30 mg 10/23/18 09:00 10/25/18 07:47 Lovenox SC 30 mg 0900 GAMAL Administration Ceftriaxone Sodium 2 gm/ 100 mls @ 200 mls/hr 10/22/18 08:00 10/25/18 07:43 Sodium Chloride IVPB 100 mls 0800 GAMAL Administration Losartan Potassium 100 mg 10/23/18 09:00 10/25/18 07:46 Cozaar PO 100 mg DAILY GAMAL Administration Polyethylene Glycol 17 gm 10/23/18 09:00 10/25/18 07:47 Miralax PO 17 gm DAILY GAMAL Administration Senna/Docusate Sodium 2 tab 10/22/18 21:00 10/25/18 07:47 Senokot S PO 2 tab BID GAMAL Administration Sodium Chloride 10 ml 10/21/18 21:00 10/25/18 07:48 Flush - Normal Saline IVF 10 ml Q12HR GAMAL Administration Thyroid 60 mg 10/23/18 09:00 10/25/18 07:46 [place] Thyroid PO 60 mg DAILY GAMAL Administration - Exam General Appearance: NAD Eye: PERRL Eye - other findings: EOMI ENT: no oropharyngeal lesions, moist mucosa Neck: supple, symmetric, no lymphadenopathy Heart: no murmur, no gallops, no rubs Heart - other findings: S1 and S2 present Respiratory: CTAB, no wheezes, no rales Gastrointestinal: soft, non-tender, non-distended, no palpable masses, no guarding, no rigidity Extremities: no edema Neurological: CN's grossly intact, normal sensation to touch Musculoskeletal: no muscle wasting, generalized weakness Psychiatric: normal affect, A&O x 3 Hosp A/P (1) Bacteremia Code(s): R78.81 - BACTEREMIA Status: Acute (2) Sepsis due to gram-negative urinary tract infection Code(s): A41.50 - GRAM-NEGATIVE SEPSIS, UNSPECIFIED; N39.0 - URINARY TRACT INFECTION, SITE NOT SPECIFIED Status: Acute (3) E. coli UTI Code(s): N39.0 - URINARY TRACT INFECTION, SITE NOT SPECIFIED; B96.20 - UNSP ESCHERICHIA COLI THE CAUSE OF DISEASES CLASSD ELSWHR Status: Acute (4) Generalized weakness Code(s): R53.1 - WEAKNESS Status: Chronic - Plan Plan: Med/ surg Repeat blood cultures to ensure sterilization of the blood If unable to sterilize blood would need to eval for colonization site of the blood Bacteremia with e.coli - rosario sensitive UTI also with e.coli - rosario sensitive Continue ceftiaxone, having a good response Normalizing WBC count Patient wants to go back to the [facility] when medically stable Continue home meds as able PT/OT GI and DVT PPX
[2018-10-26] MEDS: Acetaminophen 325 MG TAB PO PRN ×2 (00:41→20:26)
--- NOTE | 2018-10-26 01:02 | EKG ---
Test Reason : Blood Pressure : / mmHG Vent. Rate : 095 BPM Atrial Rate : 095 BPM P-R Int : 154 ms QRS Dur : 116 ms QT Int : 374 ms P-R-T Axes : 077 -33 035 degrees QTc Int : 469 ms Normal sinus rhythm Left axis deviation Low voltage QRS Inferior infarct , age undetermined Cannot rule out Anteroseptal infarct , age undetermined Abnormal ECG Confirmed by ANANTH UREÑA ([id number]), graphic editor URIEL EVANS ([id number]) on 10/26/2018 1:01:59 AM Referred By: Confirmed By:ANANTH UREÑA
[2018-10-26] MEDS: cefTRIAXone\\ROCEPHIN 2 GM in Sodium Chloride 0.9% 100 ML IVPB SCH (07:56)
[2018-10-26] MEDS: Amlodipine 5 MG TAB PO SCH (07:58)
[2018-10-26] MEDS: Polyethylene Glycol 3350 17 GM Packet PO SCH (07:58)
[2018-10-26] MEDS: Thyroid 60 MG TAB PO SCH (07:58)
[2018-10-26] MEDS: Senokot S 8.6-50 MG TAB PO SCH ×2 (07:58→20:28)
[2018-10-26] MEDS: Enoxaparin Sodium 30 MG/0.3 ML SYRINGE SC SCH (07:58)
[2018-10-26] MEDS: Losartan 25 MG TAB PO SCH (07:59)
--- NOTE | 2018-10-26 15:52 | PDOC.HOSPP ---
- Subjective Subjective: Seen and examined. Clinically improving. Will transition to oral ABX. If continues to improve will likely go back to the [facility] in the next 24-48 hours as long as continues to improve. Patient happy with plan of care. - Objective Vital Signs & Weight: Vital Signs (12 hours) Temp Pulse Resp BP Pulse Ox 10/26/18 08:00 96 10/26/18 07:58 79 10/26/18 07:41 98.3 F 79 14 148/72 H 96 Weight Admit Weight 113 lb 5 oz Weight 113 lb 5 oz I&O: 10/25/18 10/26/18 10/27/18 06:59 06:59 06:59 Intake Total 840 600 Balance 840 600 Result Diagrams: 10/23/18 04:40 10/24/18 07:47 Hospitalist ROS - Review of Systems All other systems reviewed; all pertinent +/- noted in HPI/Subj - Medication Medications: Active Medications Generic Name Dose Route Start Last Admin Trade Name Freq PRN Reason Stop Dose Admin Acetaminophen 650 mg 10/21/18 13:43 10/26/18 00:41 Tylenol PO 650 mg Q4H PRN Administration Headache/Fever/Mild Pain (1-3) Amlodipine Besylate 5 mg 10/23/18 09:00 10/26/18 07:58 Norvasc PO 5 mg DAILY GAMLA Administration Enoxaparin Sodium 30 mg 10/23/18 09:00 10/26/18 07:58 Lovenox SC 30 mg 0900 GAMAL Administration Losartan Potassium 100 mg 10/23/18 09:00 10/26/18 07:59 Cozaar PO 100 mg DAILY GAMAL Administration Polyethylene Glycol 17 gm 10/23/18 09:00 10/26/18 07:58 Miralax PO 17 gm DAILY GAMAL Administration Senna/Docusate Sodium 2 tab 10/22/18 21:00 10/26/18 07:58 Senokot S PO 2 tab BID GAMAL Administration Sodium Chloride 10 ml 10/21/18 21:00 10/26/18 07:59 Flush - Normal Saline IVF 10 ml Q12HR GAMAL Administration Thyroid 60 mg 10/23/18 09:00 10/26/18 07:58 [place] Thyroid PO 60 mg DAILY GAMAL Administration - Exam General Appearance: NAD Eye: anicteric sclera ENT: normocephalic atraumatic, moist mucosa Neck: supple, symmetric Heart: no murmur, no gallops, no rubs, normal peripheral pulses Respiratory: no wheezes, no rales, normal chest expansion Gastrointestinal: soft, non-tender, no bruit, no guarding, no rigidity Extremities: 1+ LE edema Skin: no lesions, no rashes Neurological: CN's grossly intact, no focal deficits Musculoskeletal: no muscle wasting, generalized weakness Psychiatric: normal affect, A&O x 3 Hosp A/P (1) Bacteremia Code(s): R78.81 - BACTEREMIA Status: Acute (2) Sepsis due to gram-negative urinary tract infection Code(s): A41.50 - GRAM-NEGATIVE SEPSIS, UNSPECIFIED; N39.0 - URINARY TRACT INFECTION, SITE NOT SPECIFIED Status: Acute (3) E. coli UTI Code(s): N39.0 - URINARY TRACT INFECTION, SITE NOT SPECIFIED; B96.20 - UNSP ESCHERICHIA COLI THE CAUSE OF DISEASES CLASSD ELSWHR Status: Acute (4) Generalized weakness Code(s): R53.1 - WEAKNESS Status: Chronic - Plan Plan: Med/ surg Repeat blood cultures to ensure sterilization of the blood, no growth to date If unable to sterilize blood would need to eval for colonization site of the blood Bacteremia with e.coli - rosario sensitive UTI also with e.coli - rosario sensitive Start Cefpodoxime oral, if repeat cultures remain negative will finish course of oral ABX Normalized WBC count Patient wants to go back to the [facility] when medically stable Continue home meds as able PT/OT GI and DVT PPX
[2018-10-27 07:43] VITALS: TEMP 98.4
[2018-10-27] MEDS: Thyroid 60 MG TAB PO SCH (08:22)
[2018-10-27] MEDS: Enoxaparin Sodium 30 MG/0.3 ML SYRINGE SC SCH (08:23)
[2018-10-27] MEDS: Polyethylene Glycol 3350 17 GM Packet PO SCH (08:23)
[2018-10-27] MEDS: Amlodipine 5 MG TAB PO SCH (08:23)
[2018-10-27] MEDS: Senokot S 8.6-50 MG TAB PO SCH (08:23)
[2018-10-27] MEDS: Losartan 25 MG TAB PO SCH (08:23)
[2018-10-27 08:27] VITALS: BP 138/68
--- NOTE | 2018-10-28 01:42 | DIS ---
DATE OF ADMISSION: 10/21/2018 DATE OF DISCHARGE: 10/27/2018 REASON FOR HOSPITALIZATION: Sepsis with urinary tract infection. SIGNIFICANT FINDINGS: The patient was found to be septic with bacteremia, confirmed to be E coli. PROCEDURES PERFORMED/TREATMENTS RENDERED: The patient was admitted to medical unit for close observation. Sepsis protocol. IV antibiotics. Blood cultures. Symptomatic therapies. CONDITION ON DISCHARGE: Stable. SPECIFIC INSTRUCTIONS FOR THE PATIENT/FAMILY: 1. The patient is recommended safer transport to rehabilitation facility for continuation of inpatient physical therapy and occupational therapy. 2. The patient is recommended to complete a full course of oral antibiotics for resolution of urinary tract infection. 3. The patient is recommended to continue all other home medications as directed, to be re-evaluated by admitting physician. 4. The patient is recommended to participate well with Physical Therapy and Occupational Therapy for her to regain her independence and improved functional status. 5. The patient is recommended to return to acute care hospital immediately if signs or symptoms return, worsen, or any other new symptoms occur. DISCHARGE MEDICATIONS: Please see full discharge medication reconciliation for details with the following new additions. 1. Cefpodoxime 200 mg one tablet p.o. b.i.d. for an additional four days, #8 tabs. 2. All other home medications can be continued as directed. HOSPITAL COURSE: Ms. Johnson is a very pleasant 88-year-old white female, who presented to [facility] on 10/21/2018 with sepsis. The patient was diagnosed with urinary tract infection and had blood cultures, which confirmed the presence of E coli. The patient was found to have E coli growing in the blood and the urine, both of which were sensitive to all antimicrobial coverage. The patient initially was placed on IV ceftriaxone with good improvement of symptoms. The patient's WBC count originally 27,000 on admission, normalizing to 11,000. The patient's renal function stayed normal throughout her hospitalization. The patient had repeat blood cultures from 10/24/2018, which remained no growth. With sterilization of the blood, the patient was recommended safe for transition to oral antibiotics and recommended to complete a full course over the next four days. The patient recommended safe for discharge with close followup in rehabilitation facility. The patient is recommended to take all medications as directed, to be re-evaluated by admitting physician. The patient is recommended to return to acute care hospital immediately if signs or symptoms return, worsen, or any other new symptoms occur. Greater than 37 minutes spent coordinating care and discharge process for this patient. Job ID: [id number]
== END 2018-10-27 11:49 | DRG 871 ==
LOC: ERS 07:06 → T4-A 08:29
PROVIDERS: ADMIT Internal Medicine; ATTEND Internal Medicine
DX: A41.51 Sepsis due to Escherichia coli [E. coli] (principal); J18.1 Lobar pneumonia, unspecified organism; N39.0 Urinary tract infection, site not specified; I10 Essential (primary) hypertension; E03.9 Hypothyroidism, unspecified; D53.9 Nutritional anemia, unspecified; Z91.040 Latex allergy status; Z88.1 Allergy status to other antibiotic agents; Z88.5 Allergy status to narcotic agent; Z88.8 Allergy status to other drugs, medicaments and biological substances
CPT/HCPCS: 36415; 51701; 71045; 80048; 80053; 81003; 81015; 83690; 83735; 85025; 85610; 85730; 86850; 86900; 86901; 87040; 87077; 87086; 87149; 87186; 93005; 96361; 96365; 96367; A4353; J0456; J0696; J1650; J3490; J7050

== ENCOUNTER 2018-12-14 05:33 | Emergency (ER) | payer MEDICARE, OTHER ==
[2018-12-14] MEDS ORDERED: Ondansetron PF 4 MG/2 ML Vial ONE (05:51)
[2018-12-14] MEDS ORDERED: Morphine 2 MG/ML SYRINGE ONE (05:51)
[2018-12-14 06:30] LABS: #Eosinphils 0.1 thou/uL (0.0-0.7); #Lymphocytes 0.9 thou/uL (1.20-3.40); #Monocytes 0.8 thou/uL (0.11-0.59); %Basophils 0.2 % (0.0-1.0); %Eosinophils 0.5 % (0.0-10.0); %Lymphocytes 5.4 % (21.0-51.0); %Monocytes 4.8 % (0.0-10.0); %Neutrophils 89.1 % (42.0-75.0); Hemoglobin 8.2 g/dL (12.0-16.0); Mean Corpuscular HGB CONC 30.7 g/dL (32.0-36.0); Mean Corpuscular Volume 94.5 fL (78.0-98.0); Mean Platelet Volume 6.1 fL (7.4-10.4); Platelet Count 464 thou/uL (130-400); RBC Distribution Width 16.4 % (11.5-14.5); Red Blood Cell (RBC) Count 2.82 mill/uL (4.20-5.40); White Blood Cell (WBC) Count 16.8 thou/uL (4.8-10.8)
[2018-12-14 06:38] LABS: ALT (SGPT) 11 U/L (8-55); AST (SGOT) 19 U/L (5-34); Albumin 3.5 g/dL (3.4-4.8); Alkaline Phosphatase 85 U/L (40-110); Anion Gap 9 mmol/L (10-20); BUN (Urea Nitrogen) 12 mg/dL (9.8-20.1); Bilirubin, Total 0.3 mg/dL (0.2-1.2); CK (CPK) 30 U/L (29-168); Calc. Creatinine Clearance 0 mL/min (70-130); Calcium 9.1 mg/dL (7.8-10.44); Carbon Dioxide 29 mmol/L (23-31); Chloride 104 mmol/L (98-107); Estimated GFR-MDRD Greater than 90; Globulin 2.8 g/dL (2.4-3.5); Glucose 113 mg/dL (83-110); Protein, Total 6.3 g/dL (6.0-8.3); Sodium 138 mmol/L (136-145)
[2018-12-14] MEDS ORDERED: Acetaminophen 500 MG TAB ONE (08:44)
--- NOTE | 2018-12-14 09:10 | RAD ---
PORTABLE CHEST 1 VIEW: Date: 12/14/18 Time: 0529 hours HISTORY: Dizziness and fall. FINDINGS/IMPRESSION: Comparison made with exam of 10/24/18. The heart is enlarged. The right-sided venous catheter is again seen. The aorta is tortuous. No lobar consolidation, pneumothoraces, or large effusions are seen. A calcified left breast implant is noted . POS: [facility]
--- NOTE | 2018-12-14 12:12 | CT ---
PRELIMINARY REPORT/[facility]/EMERGENCY AFTER HOURS PROCEDURE: PROCEDURE INFORMATION: Exam: CT Thoracic Spine Without Contrast Exam date and time: 12/14/2018 6:11 AM Clinical history: 88 years old, female; Injury or trauma; Initial encounter; Blunt trauma (contusions or hematomas); Patient HX: No previous. . . Er 3. . . 88 y/o F, with h/o anal CA, presents to ED via EMS transport from the [facility] S/P fall. PT was in her bathroom and recalls feeling dizzy prior to the f all. She states she was aware she was falling and attempted to prevent the fall but was unable to do so. [facility] staff. TECHNIQUE: Imaging protocol: Computed tomography images of the thoracic spine without contrast. COMPARISON: No relevant prior studies available. FINDINGS: Tubes, catheters and devices: There is a right-sided central venous catheter. Vertebrae: No acute thoracic spine fracture is demonstrated. Discs/Spinal canal/Neural foramina: No spinal stenosis. Soft tissues: Unremarkable. Lungs: There is subpleural atelectasis of the dependent portions of the lungs. Mediastinum: A moderate hiatal hernia is present. Liver: Hepatic cysts are noted, partially visualized. Kidneys and ureters: There is hydronephrosis, record of the left, partially visualized. IMPRESSION: No acute thoracic spine fracture is demonstrated. Thank you for allowing us to participate in the care of your patient. Dictated and Authenticated by: Naun Nielsen MD 12/14/2018 6:46 AM Central Time ([place] & [place]) FINAL REPORT CT THORACIC SPINE WITH CORONAL AND SAGITTAL REFORMATIONS: IMPRESSION: I agree with the preliminary report given by [facility]. POS: [facility]
--- NOTE | 2018-12-14 12:13 | CT ---
PRELIMINARY REPORT/[facility]/EMERGENCY AFTER HOURS PROCEDURE: PROCEDURE INFORMATION: Exam: CT Lumbar Spine Without Contrast Exam date and time: 12/14/2018 6:11 AM Clinical history: 88 years old, female; Injury or trauma; Initial encounter; Blunt trauma (contusions or hematomas); Patient HX: No previous. . . Er 3. . . 88 y/o F, with h/o anal CA, presents to ED via EMS [facility]. PT was in her bathroom and recalls feeling dizzy prior to the fall. She states she was aware she was falling and attempted to prevent the fall but was unable t o do so. [place] [facility] staff. TECHNIQUE: Imaging protocol: Computed tomography images of the lumbar spine without contrast. COMPARISON: No relevant prior studies available. FINDINGS: Vertebrae: There is dextroscoliosis of the lumbar spine. No acute lumbar spine fracture is demonstrat ed. Discs/Spinal canal/Neural foramina: No spinal stenosis. No neural foraminal narrowing. Kidneys and ureters: There is marked right hydronephrosis and mild left hydronephrosis with markedly enlarged urinary bladder, partially visualized. Soft tissues: Unremarkable. IMPRESSION: 1. No acute lumbar spine fracture is demonstrated. 2. Marked right hydronephrosis and mild left hydronephrosis with markedly enlarged urinary bladder, p artially visualized. Thank you for allowing us to participate in the care of your patient. Dictated and Authenticated by: Naun Nielsen MD 12/14/2018 6:48 AM Central Time ([place] & [place]) FINAL REPORT CT LUMBAR SPINE WITH CORONAL AND SAGITTAL REFORMATIONS: IMPRESSION: I agree with the preliminary report given by [facility]. POS: [facility]
== END 2018-12-14 08:48 ==
LOC: ERS 05:33
DX: M54.6 Pain in thoracic spine (principal); R33.9 Retention of urine, unspecified; C20 Malignant neoplasm of rectum; Z86.73 Personal history of transient ischemic attack (TIA), and cerebral infarction without residual deficits; I10 Essential (primary) hypertension; E03.9 Hypothyroidism, unspecified; Z79.899 Other long term (current) drug therapy
CPT/HCPCS: 36415; 51701; 71045; 72128; 72131; 80053; 82550; 84484; 85025; 93005; 96361; 96374; 96375; J2270; J2405